=== PATIENT | male | born 1985 | race Caucasian/White ===

== ENCOUNTER 2021-10-30 05:35 | Observation (INO) | payer OTHER, SELFPAY ==
[2021-10-30 05:51] VITALS: BP 129/80; PULSE 80; RESP 18; TEMP 36.8; O2SAT 98; BMI 22.5
--- NOTE | 2021-10-30 06:14 | ECG_ITS ---
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 Measurements Intervals [place] Rate: 69 P: 75 LA: 159 QRS: 47 QRSD: 128 T: 50 QT: 402 QTc: 431 Interpretive Statements SINUS RHYTHM POSSIBLE LEFT ATRIAL ENLARGEMENT [-0.1mV P-WAVE IN V1/V2] RIGHT BUNDLE BRANCH BLOCK [120+ ms QRS DURATION, UPRIGHT V1, 40+ ms S IN I/aVL/V4/V5/V6] No previous ECG available for comparison Electronically Signed On 11-02-2021 17:33:20 [facility] [place] by Stan Dutta M.D. [id number]
--- NOTE | 2021-10-30 06:19 | ED_ITS ---
HPI - General Adult General: Chief complaint: Syncope Stated complaint: Over workout=Rhabdomylosis Time Seen by Provider: 10/30/21 06:12 History of Present Illness: HPI narrative: Patient is a 36-year-old male with no known past medical history presenting to the emergency room with abdominal wall pain and night lightheadedness. Patient tells me that 2 days ago he was working out at [employer] and strained his abdomen doing sit ups. Since then, patient has had significant pain in his abdomen. Earlier today, patient was going going up to go to the bathroom, felt lightheaded almost passed out. Patient says any that he is worried that he may have rhabdomyolysis. Patient denies any hematuria, flank pain, lightheadedness prior to today. Patient has not had any decreased p.o. intake denies any nausea vomiting, any GI symptoms including diarrhea melena or hematochezia. Patient has no urinary complaints, chest pain, shortness breath, palpitation, fever/chills. Denies any new medications. Onset:2 days ago Duration:2 days Location:home Severity:mild/moderate Review of Systems Narrative: Constitutional: No fever, no chills. HEENT: No vision changes CV: No chest pain, no palpitations PULM: no cough, no dyspnea. GI: + diffuse abdominal pain, no N/V/D. : No dysuria MSKEL: No muscle pain SKIN: No new rashes, no lesions. NEURO: No headache, no focal weakness. +light-headedness HEME: No visible bruises PSYCH: Normal mood Physical Exam Narrative: EXAM NARRATIVE: Head: Atraumatic Eyes: PERRL, conjunctiva without injection ENT: Mucous membrane moist NECK: Supple, ROM intact LUNGS: LCTAB, no crackles/rhonchi CV: RRR ABDOMEN: Soft, no focal TTP. NO guarding rebound, guarding, rigidity. No CVA tenderness to percussion. Neg Miranda/Neg McBurney's point tenderness, no suprabupic tenderness to palpation. EXTREMITY: Normal ROM SKIN: No rash or erythema NEURO: Awake and alert, no focal motor deficits PSYCH: Normal mood and affect Course Vital Signs: Vital signs: Vital Signs Temperature 98.2 F 10/30/21 05:51 Pulse Rate 71 10/30/21 06:33 Respiratory Rate 18 10/30/21 06:33 Blood Pressure 104/87 10/30/21 06:33 Pulse Oximetry 99 10/30/21 06:33 MDM - General Adult MDM Narrative: Medical decision making narrative: 36-year-old gentleman presenting to the emergency room with abdominal wall pain and lightheadedness after sustaining heavy workout 2 days ago. On exam, patient is hemodynamically stable, not appear to be dry on exam. Patient has no focal tenderness palpation of the abdomen. Patient's concern for rhabdomyolysis, will work basic blood w ork including electrolytes and CPK. Work-up, CBC, CMP, lipase, UA, EKG, athletic monitor Intervention: IVF x2 L, reassessment EKG showing regular sinus rhythm at HT of [69]. RBBB. Normal axis. No ST elevations/depressions to suggest coronary occlusion. Normal ID, QRS, QT intervals. On reassessment at 8:00am, patient appears to be symptomatically improved after 2 L of fluid and Tylenol for abdominal pain. Patient has no focal complaints at this time. CPK increased despite IVF. Cr wnl. Will admit for rehydration. Disposition: Admission Lab Data: Labs: Lab Results 10/30/21 10/30/21 10/30/21 06:20 06:20 08:29 WBC 8.6 10^3/uL 10^3/ uL (4.0-10.0) RBC 5.09 10^6/uL 10^6 /uL (4.1-5.3) Hgb 15.9 g/dL g/dL (11.7-16.6) Hct 46.9 % % (42.0-52.0) MCV 92.1 fl fl (80-94) MCH 31.2 pg pg (28.0-34.0) MCHC 33.9 g/dL g/dL (30.0-36.0) RDW 11.9 % L % (12.1-15.1) Plt Count 211 10^3/cmm 10^3 /cmm (130-400) MPV 10.7 fL H fL (7.4-10.4) Neut % (Auto) 70.5 % % Lymph % (Auto) 17.2 % % [place] % (Auto) 8.5 % % Eos % (Auto) 3.2 % % Baso % (Auto) 0.4 % % Neut # (Auto) 6.05 10^3/uL 10^3 /uL (1.8-7.7) Lymph # (Auto) 1.5 10^3/uL 10^3/ uL (0.8-4.8) [place] # (Auto) 0.7 10^3/uL 10^3/ uL (0.2-0.9) Eos # (Auto) 0.3 10^3/uL 10^3/ uL (0.0-0.8) Baso # (Auto) 0.0 10^3/uL 10^3/ uL (0.0-0.1) Nucleated RBC % (a uto) 0 % % Nucleated RBCs # 0.0 /100WBC /100W BC Sodium 138 mmol/L mmol/L (136-145) Potassium 4.2 mmol/L mmol/L (3.5-5.1) Chloride 102 mmol/L mmol/L (98-107) Carbon Dioxide 28 mmol/L mmol/L (22-29) Anion Gap 12.2 (5-19) BUN 9 mg/dL mg/dL (6-20) Creatinine 0.9 mg/dL mg/dL (0.7-1.2) GFR Calculation 95.5 mL/min mL/mi n (90-130) Glucose 121 mg/dL H mg/dL (65-115) Calculated Osmolal ity 286 mOsm/kg mOsm/ kg (285-295) Calcium 8.8 mg/dL mg/dL (8.5-10.5) Total Bilirubin 0.4 mg/dL mg/dL (0.15-1.2) AST 80 U/L H U/L (0-40) ALT 35 U/L U/L (0-41) Alkaline Phosphata se 55 IU/L IU/L (40-130) Creatine Kinase 5234 U/L H* U/L 5975 U/L H* U/L (39-308) (39-308) Total Protein 6.9 g/dL g/dL (6.6-8.7) Albumin 4.4 g/dL g/dL (3.5-5.2) Globulin 2.5 g/dL g/dL (1.3-4.6) Discharge Plan Discharge Patient Disposition: Admitted As Inpatient Clinical Impression: Abdominal wall pain, Light headedness, Elevated CPK Condition: Stable Discharge Diet: Advance as tolerated Discharge Activity: Resume usual activity 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
[2021-10-30] MEDS: sodium chloride 0.9% 1,000 ML 999 ML IV ×4 (06:26→08:00)
[2021-10-30 06:29] LABS: Basophils % 0.4 %; Eosinophils # 0.3 10^3/uL (0.0-0.8); Eosinophils % 3.2 %; Hematocrit 46.9 % (42.0-52.0); Hemoglobin 15.9 g/dL (11.7-16.6); Lymphocytes # 1.5 10^3/uL (0.8-4.8); Lymphocytes % 17.2 %; Mean Corpuscular HGB Conc 33.9 g/dL (30.0-36.0); Mean Corpuscular Hemoglobin 31.2 pg (28.0-34.0); Mean Corpuscular Volume 92.1 fl (80-94); Mean Platelet Volume 10.7 fL (7.4-10.4); Monocytes # 0.7 10^3/uL (0.2-0.9); Monocytes % 8.5 %; Neutrophils # 6.05 10^3/uL (1.8-7.7); Neutrophils % 70.5 %; Nucleated Red Blood Cells % 0 %; Platelet Count 211 10^3/cmm (130-400); Red Blood Count 5.09 10^6/uL (4.1-5.3); Red Cell Distribution Width 11.9 % (12.1-15.1); White Blood Count 8.6 10^3/uL (4.0-10.0)
[2021-10-30 06:33] VITALS: BP 104/87; PULSE 71; RESP 18; O2SAT 99
[2021-10-30 06:48] LABS: Alanine Aminotransferase 35 U/L (0-41); Albumin Level 4.4 g/dL (3.5-5.2); Alkaline Phosphatase 55 IU/L (40-130); Anion Gap 12.2 (5-19); Aspartate Amino Transferase 80 U/L (0-40); Blood Urea Nitrogen 9 mg/dL (6-20); Calcium 8.8 mg/dL (8.5-10.5); Carbon Dioxide 28 mmol/L (22-29); Chloride 102 mmol/L (98-107); Globulin 2.5 g/dL (1.3-4.6); Glomerular Filtration Rate 95.5 mL/min (90-130); Glucose 121 mg/dL (65-115); Osmolality Calculated 286 mOsm/kg (285-295); Potassium 4.2 mmol/L (3.5-5.1); Sodium 138 mmol/L (136-145); Total Bilirubin 0.4 mg/dL (0.15-1.2); Total Protein 6.9 g/dL (6.6-8.7)
[2021-10-30 07:07] LABS: Creatine Phosphokinase 5234 U/L (39-308)
[2021-10-30] MEDS: acetaminophen 500 mg Tablet PO (08:00)
[2021-10-30 09:14] LABS: Creatine Phosphokinase 5975 U/L (39-308)
--- NOTE | 2021-10-30 10:19 | P.HP_ITS ---
Providers/Chief Complaint Primary Care Provider: Nathanael Eaton Chief Complaint: Over workout=Rhabdomylosis History of Present Illness Brayan Marinelli is a 36 year old male with ocular migraines, who presents [facility] due to abdominal pain, abdominal wall pain, lightheadedness, dizziness, diaphoresis. Patient tells me that he started participating in [employer] for the last 2 months, on Tuesday he attended [employer], they did abdominal exercises, and developed abdominal pain complaints, more in the abdominal wall, muscular pain, he hydrates at least 2 L a day, on Tuesday again he did [employer], continue to have generalized musculoskeletal pain. Overnight he continued have pain, this morning he woke up, he felt lightheaded and dizzy, and at times he felt diaphoretic. No facial droop, slurring of his words, no headache, blurry vision, last bowel movement was a day ago, no bloody or black stools, no fevers, chills, no nausea, no vomiting. No chest pain, no palpitations, no shortness of breath. Review of Systems Const: Denies: fever(s), chills, fatigue or malaise Eyes: Denies: change in vision or blurry vision ENMT: Denies: nasal congestion Card: Denies: chest pain or palpitations Resp: Denies: dyspnea, productive cough, non-productive cough or wheezing GI: Reports: abdominal pain and constipation; Denies: nausea, vomiting, hematemesis, diarrhea, hematochezia or melena : Denies: flank pain, difficulty urinating, dysuria or urinary frequency Musc: Reports: muscle cramps; Denies: neck pain or back pain Skin/Breast: Denies: rash Neuro: Denies: headache(s), dizziness or vertigo Psych: Denies: anxiety or depression Endo: Denies: polyuria or polydipsia Medications/Allergies Home Medications Medication Instructions Recorded Confirmed Last Taken Type acetaminophen 500 mg PO Q6H PRN 5 Days #20 tab 10/30/21 Unknown Rx PFSH Acute PFSH: Medical History (Updated 10/30/21 @ 10:24 by Bethel Gallardo MD) Ocular migraine Surgical History (Updated 10/30/21 @ 10:23 by Bethel Gallardo MD) No pertinent past surgical history Social History (Updated 10/30/21 @ 10:23 by Bethel Gallardo MD) Smoking and tobacco status: never smoked Alcohol intake: never Substance/Drug Use: never Vitals/I&O/Wt Last Vital Signs Temp 98.2 F 10/30/21 05:51 Pulse 71 10/30/21 06:33 Resp 18 10/30/21 06:33 BP 104/87 10/30/21 06:33 Pulse Ox 99 10/30/21 06:33 10/29/21 10/30/21 10/30/21 22:59 06:59 14:59 Intake Total 1000 / 1000 Balance 1000 / 1000 Weight last 48 hrs Weight 81.647 kg Physical Exam Const: COMMON NORMALS: no acute distress and patient oriented x3 GENERAL APPEARANCE: cooperative and comfortable HENMT: COMMON NORMALS: normocephalic HEAD & SCALP: normocephalic Eye: COMMON NORMALS: Equal, round and reactive pupils present and EOMs intact bilaterally GENERAL EYE: appearance normal, both eyes and all related structures PUPIL: Yes Equal, round and reactive pupils present Neck/C-Spine: COMMON NORMALS: full ROM and no lymphadenopathy THYROID: Thyroid normal Lymph: LYMPHATIC: no lymphadenopathy noted Resp: COMMON NORMALS: normal respiratory effort, No retractions, No use of accessory muscles and clear to auscultation bilaterally AUSCULTATION: clear to auscultation bilaterally Cardio: COMMON NORMALS: regular rate, regular rhythm, S1 normal heart sound present, S2 normal heart sound present, No gallops present (Cardio), No clicks present (Cardio) and No murmurs present (Cardio) RATE: regular rate RHYTHM: regular rhythm HEART SOUNDS: S1 normal heart sound present and S2 normal heart sound present GI: INSPECTION: Yes normal to inspection AUSCULTATION: Yes normoactive bowel sounds PALPATION: Yes Soft to palpation, Yes Tenderness to palpation present (GI) (Generalized abdominal tenderness), No Guarding due to palpation present (GI) and No Rigid due to palpation Extremity: COMMON NORMALS: normal to inspection, full ROM and no pedal edema Neuro: COMMON NORMALS: patient oriented x3, CN's II-XII intact bilaterally, moves all extremities and no focal motor deficits Psych: COMMON NORMALS: mental status grossly normal, Normal thought process present and cooperative THOUGHT PROCESS: Normal thought process present Data : 10/30/21 06:20 10/30/21 06:20 A&P Assessment and plan (1) Abdominal wall pain: Status: Acute (2) Rhabdomyolysis: -Likely secondary to [employer] -Continue bedrest -IV hydration -Monitor CPK, creatinine - we will consider bicarb -We will do CT scan abdomen for abdominal wall pain, likely abdominal wall pain, will need to evaluate for gut edema Status: Acute Attestations Medical Necessity Statement*: Patient requires hospitalization, outpatient with observation, for rhabdomyolysis, abdominal wall pain, abdominal pain, dehydration, Coding Level of Care Code Acute Manager Of Marketing for [facility] Fwd Diagnoses Abdominal wall pain R10.9 Rhabdomyolysis M62.82
--- NOTE | 2021-10-30 14:32 | CTR_ITS ---
PROCEDURE INFORMATION: Exam: CT Abdomen And Pelvis Without Contrast Exam date and time: 10/30/2021 2:32 PM Age: 36 years old Clinical indication: Abdominal pain; Generalized; Patient HX: C/O abd pain w elev ck; Additional info: Abdominal pain, elevaed cp, gut edema TECHNIQUE: Imaging protocol: Computed tomography of the abdomen and pelvis without contrast. Radiation optimization: All CT scans at this facility use at least one of these dose optimization techniques: automated exposure control; mA and/or kV adjustment per patient size (includes targeted exams where dose is matched to clinical indication); or iterative reconstruction. COMPARISON: No relevant prior studies available. RADIATION DOSE METRICS: Total DLP (mGy-cm): 1369.56 FINDINGS: Liver: Normal. No mass. Gallbladder and bile ducts: Normal. No calcified stones. No ductal dilation. Pancreas: Normal. No ductal dilation. Spleen: Normal. No splenomegaly. Adrenal glands: Normal. No mass. Kidneys and ureters: Bilateral punctate nonobstructing renal calyceal stones. Stomach and bowel: Unremarkable. No obstruction. No mucosal thickening. Appendix: No evidence of appendicitis. Intraperitoneal space: Unremarkable. No free air. No significant fluid collection. Vasculature: Unremarkable. No abdominal aortic aneurysm. Lymph nodes: Unremarkable. No enlarged lymph nodes. Urinary bladder: Unremarkable as visualized. Reproductive: Unremarkable as visualized. Bones/joints: Unremarkable. No acute fracture. Soft tissues: Unremarkable. CT/CT abdomen pelvis con [id number] IMPRESSION: 1. Negative for acute inflammatory process in the abdomen or pelvis. 2. Bilateral punctate nonobstructing renal calyceal stones. Radiation Dose CTDIVOL = (mGy): DLP = 1369.56 (mGy-cm)
[2021-10-30 15:50] LABS: Thyroid Stimulating Hormone 1.94 uIU/mL (0.27-4.20)
[2021-10-30 16:00] VITALS: BP 123/76; PULSE 72; RESP 18; TEMP 36.8; O2SAT 100
[2021-10-30] MEDS: sodium chloride 0.9% 1,000 ML 100 ML IV (16:25)
[2021-10-30 16:37] VITALS: BMI 22.5
[2021-10-30 16:57] VITALS: BP 123/76; PULSE 72; RESP 18; TEMP 36.8; O2SAT 100
[2021-10-30 19:01] LABS: Creatine Phosphokinase 12676 U/L (39-308)
[2021-10-30 19:29] VITALS: BP 123/73; PULSE 74; RESP 16; TEMP 37.1; O2SAT 99
[2021-10-30 23:18] VITALS: BP 127/76; PULSE 66; RESP 16; TEMP 36.8; O2SAT 98
[2021-10-31] MEDS: sodium chloride 0.9% 1,000 ML 100 ML IV ×2 (00:23→08:25)
[2021-10-31 03:41] VITALS: BP 121/73; PULSE 63; RESP 16; TEMP 36.8; O2SAT 96
[2021-10-31 05:39] LABS: Basophils % 0.4 %; Eosinophils # 0.2 10^3/uL (0.0-0.8); Eosinophils % 2.5 %; Hematocrit 44.2 % (42.0-52.0); Hemoglobin 14.6 g/dL (11.7-16.6); Lymphocytes # 2.5 10^3/uL (0.8-4.8); Lymphocytes % 29.1 %; Mean Corpuscular Hemoglobin 30.6 pg (28.0-34.0); Mean Corpuscular Volume 92.7 fl (80-94); Mean Platelet Volume 11.7 fL (7.4-10.4); Monocytes # 0.9 10^3/uL (0.2-0.9); Neutrophils # 4.92 10^3/uL (1.8-7.7); Neutrophils % 57.8 %; Nucleated Red Blood Cells % 0 %; Platelet Count 197 10^3/cmm (130-400); Red Blood Count 4.77 10^6/uL (4.1-5.3); Red Cell Distribution Width 11.9 % (12.1-15.1); White Blood Count 8.5 10^3/uL (4.0-10.0)
[2021-10-31 06:20] LABS: Alanine Aminotransferase 51 U/L (0-41); Albumin Level 3.8 g/dL (3.5-5.2); Alkaline Phosphatase 48 IU/L (40-130); Anion Gap 13.8 (5-19); Aspartate Amino Transferase 161 U/L (0-40); Blood Urea Nitrogen 6 mg/dL (6-20); Calcium 8.2 mg/dL (8.5-10.5); Carbon Dioxide 25 mmol/L (22-29); Chloride 105 mmol/L (98-107); Creatinine Clr Calc Pharmacy 150.5089; Globulin 2.1 g/dL (1.3-4.6); Glomerular Filtration Rate 109.4 mL/min (90-130); Glucose 85 mg/dL (65-115); Magnesium 1.9 mg/dL (1.7-2.3); Osmolality Calculated 287 mOsm/kg (285-295); Phosphorus 3.1 mg/dL (2.5-4.5); Potassium 3.8 mmol/L (3.5-5.1); Sodium 140 mmol/L (136-145); Total Bilirubin 0.8 mg/dL (0.15-1.2); Total Protein 5.9 g/dL (6.6-8.7)
[2021-10-31 07:35] VITALS: BP 116/71; PULSE 69; RESP 18; TEMP 36.8; O2SAT 97
[2021-10-31 07:45] LABS: Creatine Phosphokinase 10825 U/L (39-308)
[2021-10-31] MEDS: sodium bicarbonate 650 mg Tablet PO (11:11)
[2021-10-31 11:31] VITALS: BP 114/65; PULSE 66; RESP 17; TEMP 36.7; O2SAT 98
--- NOTE | 2021-10-31 12:45 | PC.NURSE ---
Patient requested to sign AMA papers at this time because he is not interested in staying another night in the hospital .Dr. Gallardo notified at this time. Patient educated on drinking 3-4L of Gatorade or water a day, bedrest for the next 48 hours, and following up with his primary provider to recheck labs. Patient voiced understanding and thankful for care provided while here.
--- NOTE | 2021-10-31 14:19 | P.DS_ITS ---
Discharge Providers Date of Admission: 10/30/21 09:19 Date of Discharge: October 31, 2021 Attending Provider at Admission: Bethel Gallardo MD Attending Provider at Discharge: Bethel Gallardo MD Primary Care Provider: Nathanael Eaton Diagnoses at Discharge Discharge Diagnosis (1) Abdominal wall pain: Status: Acute (2) Rhabdomyolysis: Status: Acute Reason for Visit Reason for Visit: Over workout=Rhabdomylosis Hospital Course Hospital Course This is a 36-year-old male with a past medical history of ocular migraines, who presents [facility] due to lightheadedness, patient was admitted to [facility] for rhabdomyolysis, and [place], [place] [address], downward trending, receiving IV hydration, sodium bicarb, bedrest. No significant creatinine elevation. Patient is CPK remains elevated, I strongly advised for hospitalization, however patient left AGAINST MEDICAL ADVICE. Patient was advised of his risk of significant morbidity mortality associated with rhabdomyolysis, dehydration, acute renal failure, including but not limited to dialysis, adverse cardiovascular event, sudden cardiac . He voiced understanding, all questions answered, left AGAINST MEDICAL ADVICE. Patient was discharged home on instructions to drink plenty of electrolyte balance fluids, sodium bicarb, follow-up with primary care provider we will recheck blood work in 1 week. Patient was advised on bedrest for the next few days Discharge Data Data Completed and Pending: Completed Studies During Hospitalization Category Date Time Status CT abdomen pelvis wo con [id number] Urge nt Cat Scan 10/30/21 14:32 Completed Labs from last 24 hours 10/31/21 10/31/21 10/31/21 02:57 02:57 02:57 WBC 8.5 RBC 4.77 Hgb 14.6 Hct 44.2 MCV 92.7 MCH 30.6 MCHC 33.0 RDW 11.9 L Plt Count 197 MPV 11.7 H Neut % (Auto) 57.8 Lymph % (Auto) 29.1 [place] % (Auto) 10.0 Eos % (Auto) 2.5 Baso % (Auto) 0.4 Neut # (Auto) 4.92 Lymph # (Auto) 2.5 [place] # (Auto) 0.9 Eos # (Auto) 0.2 Baso # (Auto) 0.0 Nucleated RBC % (a uto) 0 Nucleated RBCs # 0.0 Sodium 140 Potassium 3.8 Chloride 105 Carbon Dioxide 25 Anion Gap 13.8 BUN 6 Creatinine 0.8 GFR Calculation 109.4 Glucose 85 Calculated Osmolal ity 287 Calcium 8.2 L Phosphorus 3.1 Magnesium 1.9 Total Bilirubin 0.8 AST 161 H ALT 51 H Alkaline Phosphata se 48 Creatine Kinase Cancelled 22445 H* Total Protein 5.9 L Albumin 3.8 Globulin 2.1 TSH 10/30/21 10/30/21 18:19 06:20 WBC RBC Hgb Hct MCV MCH MCHC RDW Plt Count MPV Neut % (Auto) Lymph % (Auto) [place] % (Auto) Eos % (Auto) Baso % (Auto) Neut # (Auto) Lymph # (Auto) [place] # (Auto) Eos # (Auto) Baso # (Auto) Nucleated RBC % (a uto) Nucleated RBCs # Sodium Potassium Chloride Carbon Dioxide Anion Gap BUN Creatinine GFR Calculation Glucose Calculated Osmolal ity Calcium Phosphorus Magnesium Total Bilirubin AST ALT Alkaline Phosphata se Creatine Kinase 82203 H* D Total Protein Albumin Globulin TSH 1.94 Vitals: Last Vital Signs Temp 98.1 F 10/31/21 11:31 Pulse 66 10/31/21 11:31 Resp 17 10/31/21 11:31 BP 114/65 10/31/21 11:31 Pulse Ox 98 10/31/21 11:31 Discharge Plan Discharge Patient Disposition: Left Against Medical Advice Condition: Stable Prescriptions: New sodium bicarbonate 325 mg tablet 325 mg PO BID 5 Days Qty: 10 RF: 0 No Action No Known Home Medications RF: 0 Discharge Orders: Discharge Order (Routine); Ordered 10/31/21 Ordered By: Bethel Gallardo Referrals: Nathanael Eaton [Primary Care Provider] - Discharge Diet: Advance as tolerated Discharge Activity: Resume usual activity Patient Instructions: Abdominal Pain (ED) Activity Restrictions/Additional Instructions: Come back to the emergency room if your abdominal pain worsens, have any fever or chills, worsening shortness of breath, worsening exertional lightheadedness, or any new or concerning complaints. -Please drink plenty of electrolyte balance fluids such as Gatorade or Powerade, at least 2 L a day -Follow-up with primary care provider about recheck CPK, and kidney function within at least a week -If any worsening lightheadedness, dizziness, flank pain go to the emergency room Discharge Attestations Time Spent in Discharge Care*: less than 30 min Quality Metrics Clinical Quality Measures During this hospital stay, did patient experience: None Coding Level of Care Code Acute Chg FW DC note Diagnoses Abdominal wall pain R10.9 Rhabdomyolysis M62.82
== END 2021-10-31 12:56 | disposition left against medical advice (07) ==
LOC: ER 09:18 → MEDSURG 15:03
PROVIDERS: Emergency Medicine; Admitting Provider Family Medicine; Emergency Provider Emergency Medicine; PCP Internal Medicine; Visit Provider Family Medicine
DX: M62.82 Rhabdomyolysis (principal); R10.9 Unspecified abdominal pain; E86.0 Dehydration; G43.809 Other migraine, not intractable, without status migrainosus; Z53.29 Procedure and treatment not carried out because of patient's decision for other reasons
CPT/HCPCS: 36415; 74176; 80053; 82550; 83735; 84100; 84443; 85025; 93005; 96360; 96361; 99285; G0378; J7030

== ENCOUNTER 2022-04-13 12:52 | Emergency (ER) | payer OTHER, SELFPAY ==
[2022-04-13 12:56] VITALS: BP 137/82; PULSE 79; RESP 18; TEMP 36.7; O2SAT 100; BMI 22.5
--- NOTE | 2022-04-13 13:09 | XRR_ITS ---
PROCEDURE INFORMATION: Exam: XR Chest Exam date and time: 04/13/2022 1:16 PM Age: 36 years old Clinical indication: Cough and dyspnea; Additional info: Dyspnea/cough TECHNIQUE: Imaging protocol: XR of the chest. Views: 1 view. COMPARISON: CT abdomen pelvis con [id number] 10/30/2021 2:45 PM FINDINGS: Lungs: Unremarkable. No consolidation. Pleural spaces: Unremarkable. No pleural effusion. No pneumothorax. Heart/Mediastinum: Unremarkable. No cardiomegaly. Bones/joints: Unremarkable. XR/XR chest 1V portable [id number] IMPRESSION: No acute findings.
--- NOTE | 2022-04-13 13:09 | ECG_ITS ---
[facility] Test Date: 2022-04-13 Pat Name: Brayan Marinelli Department: Room: Gender: Male Sample Ste[employer]: : 1985 Requested By: Romeo Borjas Order Number: [id number] Renée MD: Stan Dutta M.D. Measurements Intervals [place] Rate: 78 P: 80 TN: 149 QRS: 38 QRSD: 121 T: 53 QT: 372 QTc: 424 Interpretive Statements SINUS RHYTHM WITH SINUS ARRHYTHMIA LEFT ATRIAL ENLARGEMENT [-0.15mV P-WAVE IN V1/V2] RIGHT BUNDLE BRANCH BLOCK [120+ ms QRS DURATION, UPRIGHT V1, 40+ ms S IN I/aVL/V4/V5/V6] Compared to ECG 10/30/2021 07:02:03 No significant changes Electronically Signed On 04-13-2022 17:09:44 CDT by Stan Dutta M.D. [id number]
--- NOTE | 2022-04-13 13:11 | W.ED.ARRPALP ---
HPI - Arrhythmia/Palpitations General: Chief Complaint: Arrhythmia/Palpitations Stated Complaint: NEW ONSET A-FIB Time Seen by Provider: 04/13/22 12:54 Source: patient Mode of arrival: ambulatory Limitations: no limitations History of Present Illness: 36-year-old male presents emergency room with complaint of irregular heartbeat. Brought in by EMS from local [facility]. Not been feeling well he was lightheaded had a sensation of palpitations and irregular heartbeat went to [place] [facility] he was noted to be in atrial fibrillation with rapid ventricular response. By the time he arrived here he is back in normal sinus rhythm with normal vital signs. He denies use of any energy drinks or excessive caffeine intake no recent medication changes. He has not previously had any arrhythmias. MD complaint: rapid heart beat, palpitations and irregular heart beat Onset (ago): hour(s) Duration: intermittent Severity: moderate Context: occurred during rest Associated symptoms: Deny anxiety, cough, diaphoresis, muscle cramps, nausea, paresthesias, pre-syncope, sense of impending doom, short of breath, syncope or vomiting Review of Systems Const: Denies: fever(s), chills or diaphoresis ENMT: Denies: throat pain, ear or mastoid pain, nasal discharge or nasal congestion Card: Reports: irregular heart rhythm; Denies: chest pain, palpitations, edema, swelling of feet/ankles, syncope or pre-syncope Resp: Denies: dyspnea, productive cough or non-productive cough GI: Denies: abdominal pain, nausea or vomiting : Denies: flank pain, difficulty urinating, dysuria, urinary frequency or urinary urgency Musc: Denies: muscle cramps Skin/Breast: Denies: rash or pruritus Psych: Denies: anxiety PFSH ED PFSH: Medical History Ocular migraine Surgical History No pertinent past surgical history Social History Smoking and tobacco status: never smoked Alcohol intake: never Physical Exam Const: COMMON NORMALS: no acute distress GENERAL APPEARANCE: cooperative and comfortable ORIENTATION/CONSCIOUSNESS: Yes awake, Yes oriented to person, Yes oriented to place and Yes oriented to time HENMT: COMMON NORMALS: normocephalic, atraumatic and hearing grossly normal bilaterally HEAD & SCALP: normocephalic and atraumatic Neck/C-Spine: COMMON NORMALS: no JVD Resp: COMMON NORMALS: normal respiratory effort, No retractions, No use of accessory muscles and clear to auscultation bilaterally AUSCULTATION: clear to auscultation bilaterally Cardio: COMMON NORMALS: no JVD and No murmurs present (Cardio) RATE: tachycardic RHYTHM: abnormal rhythm irregularly irregular GI: COMMON NORMALS: Soft to palpation and No hepatosplenomegaly present AUSCULTATION: Yes normoactive bowel sounds PALPATION: Yes Soft to palpation, No Tenderness to palpation present (GI), No Guarding due to palpation present (GI) and Yes No hepatosplenomegaly present Extremity: COMMON NORMALS: normal to inspection, capillary refill normal, no clubbing, cyanosis or edema, no calf tenderness and no pedal edema Neuro: SENSORIUM/ORIENTATION: Yes oriented to person, Yes oriented to place and Yes oriented to time Skin: COMMON NORMALS: no rashes or lesions noted GENERAL SKIN EXAM: no rashes or lesions noted Course Vital Signs: Vital signs: Vital Signs Temperature 98.0 F 04/13/22 12:56 Pulse Rate 83 04/13/22 16:30 Respiratory Rate 17 04/13/22 16:30 Blood Pressure 118/78 04/13/22 16:30 Pulse Oximetry 98 04/13/22 16:30 MDM - Arrhythmia/Palpitations Medical Decision Making Intermittent atrial fibrillation has remained in normal sinus rhythm. Will discharge patient home he does not have adequate blood pressure to allow for starting a beta-yefri. We will set him up for an echo and an outpatient 48-hour Holter follow-up with cardiology. Medical Records I reviewed the patient's medical records. Lab Data I reviewed the patient's lab results. : 04/13/22 13:05 04/13/22 13:05 Radiology Impressions Chest X-Ray 04/13/22 13:09 IMPRESSION: No acute findings. Laboratory Results WBC 6.7 10^3/uL (4.0-10.0) 04/13/22 13:05 RBC 5.80 10^6/uL (4.1-5.3) H 04/13/22 13:05 Hgb 17.8 g/dL (11.7-16.6) H 04/13/22 13:05 Hct 52.0 % (42.0-52.0) 04/13/22 13:05 MCV 89.7 fl (80-94) 04/13/22 13:05 MCH 30.7 pg (28.0-34.0) 04/13/22 13:05 MCHC 34.2 g/dL (30.0-36.0) 04/13/22 13:05 RDW 12.0 % (12.1-15.1) L 04/13/22 13:05 Plt Count 231 10^3/cmm (130-400) 04/13/22 13:05 MPV 11.0 fL (7.4-10.4) H 04/13/22 13:05 Neut % (Auto) 48.7 % 04/13/22 13:05 Lymph % (Auto) 33.7 % 04/13/22 13:05 Weld % (Auto) 10.8 % 04/13/22 13:05 Eos % (Auto) 6.1 % 04/13/22 13:05 Baso % (Auto) 0.6 % 04/13/22 13:05 Neut # (Auto) 3.27 10^3/uL (1.8-7.7) 04/13/22 13:05 Lymph # (Auto) 2.3 10^3/uL (0.8-4.8) 04/13/22 13:05 Weld # (Auto) 0.7 10^3/uL (0.2-0.9) 04/13/22 13:05 Eos # (Auto) 0.4 10^3/uL (0.0-0.8) 04/13/22 13:05 Baso # (Auto) 0.0 10^3/uL (0.0-0.1) 04/13/22 13:05 Nucleated RBC % (auto) 0 % 04/13/22 13:05 Nucleated RBCs # 0.0 /100WBC 04/13/22 13:05 Sodium 138 mmol/L (136-145) 04/13/22 13:05 Potassium 3.8 mmol/L (3.5-5.1) 04/13/22 13:05 Chloride 99 mmol/L (98-107) 04/13/22 13:05 Carbon Dioxide 27 mmol/L (22-29) 04/13/22 13:05 Anion Gap 15.8 (5-19) 04/13/22 13:05 BUN 12 mg/dL (6-20) 04/13/22 13:05 Creatinine 0.9 mg/dL (0.7-1.2) 04/13/22 13:05 GFR Calculation 95.5 mL/min (90-130) 04/13/22 13:05 Glucose 103 mg/dL (65-115) 04/13/22 13:05 Calculated Osmolality 286 mOsm/kg (285-295) 04/13/22 13:05 Calcium 10.0 mg/dL (8.5-10.5) 04/13/22 13:05 Total Bilirubin 0.9 mg/dL (0.15-1.2) 04/13/22 13:05 AST 20 U/L (0-40) 04/13/22 13:05 ALT 17 U/L (0-41) 04/13/22 13:05 Alkaline Phosphatase 54 IU/L (40-130) 04/13/22 13:05 Creatine Kinase 104 U/L (39-308) 04/13/22 13:05 Troponin T Baseline 6 ng/L (0-15) 04/13/22 13:05 Troponin T 120 Minute 7.54 ng/L (0-15) 04/13/22 15:10 Total Protein 8.0 g/dL (6.6-8.7) 04/13/22 13:05 Albumin 5.1 g/dL (3.5-5.2) 04/13/22 13:05 Globulin 2.9 g/dL (1.3-4.6) 04/13/22 13:05 TSH 1.93 uIU/mL (0.27-4.20) 04/13/22 13:05 Urine Opiates Screen Negative ng/mL (Negative) 04/13/22 14:23 Ur Barbiturates Screen Negative ng/mL (Negative) 04/13/22 14:23 Ur Phencyclidine Scrn Negative ng/mL (Negative) 04/13/22 14:23 Ur Amphetamines Screen Negative ng/mL (Negative) 04/13/22 14:23 U Benzodiazepines Scrn Negative ng/mL (Negative) 04/13/22 14:23 Urine Cocaine Screen Negative ng/mL (Negative) 04/13/22 14:23 U Marijuana (THC) Screen Negative ng/mL (Negative) 04/13/22 14:23 Discharge Plan Discharge Patient Disposition: Home Clinical Impression: Intermittent atrial fibrillation Condition: Stable Prescriptions: No Action No Known Home Medications 0RF Discharge Orders: Discharge ED (Routine); Ordered 04/13/22 Ordered By: Romeo Gautam Referrals: Nathanael Eaton [Referring] - Discharge Diet: Usual diet Patient Instructions: Opioid Safety Activity Restrictions/Additional Instructions: campaign management senior manager will make arrangements for you to have an echocardiogram and follow-up with cardiology. Coding Level of Care Code ED Glove Turner And Former Automatic for Nick Fwd Exam Comprehensive
[2022-04-13 13:21] LABS: Basophils % 0.6 %; Eosinophils # 0.4 10^3/uL (0.0-0.8); Eosinophils % 6.1 %; Hemoglobin 17.8 g/dL (11.7-16.6); Lymphocytes # 2.3 10^3/uL (0.8-4.8); Lymphocytes % 33.7 %; Mean Corpuscular HGB Conc 34.2 g/dL (30.0-36.0); Mean Corpuscular Hemoglobin 30.7 pg (28.0-34.0); Mean Corpuscular Volume 89.7 fl (80-94); Monocytes # 0.7 10^3/uL (0.2-0.9); Monocytes % 10.8 %; Neutrophils # 3.27 10^3/uL (1.8-7.7); Neutrophils % 48.7 %; Nucleated Red Blood Cells % 0 %; Platelet Count 231 10^3/cmm (130-400); White Blood Count 6.7 10^3/uL (4.0-10.0)
[2022-04-13 13:45] LABS: Troponin(5th) Baseline 6 ng/L (0-15)
[2022-04-13 13:52] LABS: Alanine Aminotransferase 17 U/L (0-41); Albumin Level 5.1 g/dL (3.5-5.2); Alkaline Phosphatase 54 IU/L (40-130); Anion Gap 15.8 (5-19); Aspartate Amino Transferase 20 U/L (0-40); Blood Urea Nitrogen 12 mg/dL (6-20); Carbon Dioxide 27 mmol/L (22-29); Chloride 99 mmol/L (98-107); Creatine Phosphokinase 104 U/L (39-308); Globulin 2.9 g/dL (1.3-4.6); Glomerular Filtration Rate 95.5 mL/min (90-130); Glucose 103 mg/dL (65-115); Osmolality Calculated 286 mOsm/kg (285-295); Potassium 3.8 mmol/L (3.5-5.1); Sodium 138 mmol/L (136-145); Thyroid Stimulating Hormone 1.93 uIU/mL (0.27-4.20); Total Bilirubin 0.9 mg/dL (0.15-1.2)
[2022-04-13 14:03] VITALS: BP 131/89; PULSE 82; RESP 17; O2SAT 98
[2022-04-13 14:39] VITALS: BP 130/94; PULSE 71; RESP 15; O2SAT 99
--- NOTE | 2022-04-13 15:09 | ECG_ITS ---
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 Measurements Intervals [place] Rate: 72 P: 80 DE: 148 QRS: 40 QRSD: 124 T: 43 QT: 381 QTc: 419 Interpretive Statements SINUS RHYTHM POSSIBLE LEFT ATRIAL ENLARGEMENT [-0.1mV P-WAVE IN V1/V2] RIGHT BUNDLE BRANCH BLOCK [120+ ms QRS DURATION, UPRIGHT V1, 40+ ms S IN I/aVL/V4/V5/V6] Compared to ECG 04/13/2022 13:14:36 Sinus arrhythmia no longer present Electronically Signed On 04-13-2022 17:15:19 CDT by Stan Dutta M.D. [id number]
[2022-04-13 15:11] LABS: Amphetamines Screen Urine Negative (Negative); Barbiturates Screen Urine Negative (Negative); Benzodiazepines Screen Urine Negative (Negative); Cocaine Screen Urine Negative (Negative); Opiate Screen Urine Negative (Negative); PCP Screen Urine Negative (Negative); THC Screen Urine Negative (Negative)
[2022-04-13 15:28] VITALS: BP 131/84; PULSE 70; RESP 30
[2022-04-13 16:06] LABS: Troponin 5 2HR 7.54 ng/L (0-15)
[2022-04-13 16:30] VITALS: BP 118/78; PULSE 83; RESP 17; O2SAT 98
[2022-04-13 17:05] LABS: Troponin 5 2HR Delta 1.54 ABS# (0-10)
--- NOTE | 2022-04-14 13:03 | DCPLANNER ---
Addendum entered by Tena Marinelli 04/24/22 08:20: Patient had a follow up appointment scheduled for 04.20.22 with [facility] - patient did attend appointment. Addendum entered by Tena Marinelli 04/20/22 07:03: The ER physician wanted some outpatient tests ordered for patient. Patient has [facility] insurance, the outpatient test can not be ordered from the ER. senior international tax manager sent patients information to Martha with [facility] for the authorization process to be started. Original Note: senior international tax manager had message to schedule a follow up appointment for patient with [facility]. senior international tax manager sent patients information to the front office staff at [facility]. Patients information will be printed and reviewed. Clinic will call patient with appointment information.
== END 2022-04-13 17:03 | disposition home or self-care (01) ==
PROVIDERS: Emergency Provider Family Medicine
DX: I48.91 Unspecified atrial fibrillation (principal)
CPT/HCPCS: 71045; 80053; 80306; 82550; 84443; 84484; 85025; 93005; 99284

== ENCOUNTER 2022-04-14 17:36 | Emergency (ER) | payer OTHER, SELFPAY ==
[2022-04-14 17:45] VITALS: BP 128/77; PULSE 86; RESP 18; TEMP 36.6; O2SAT 99; BMI 22.5
[2022-04-14] MEDS: sodium chloride 0.9% 1,000 ML 999 ML IV (18:02)
[2022-04-14 18:18] VITALS: BP 123/85; PULSE 76; RESP 17; O2SAT 97
--- NOTE | 2022-04-14 18:25 | W.ED.SOB ---
HPI - SOB/Dyspnea General: Chief Complaint: Shortness of Breath/Dyspnea Stated Complaint: SOB/exhausted feelin/here yesterday due heart prob Time Seen by Provider: 04/14/22 18:21 History of Present Illness: HPI Narrative: Mr. Marinelli is a 36-year-old gentleman with recent diagnosis of intermittent atrial fibrillation presents to the emergency department due to generalized symptoms. He reports presented yesterday primarily with abnormal fluttering sensation in his chest associated with generalized malaise and lightheadedness. He spontaneously converted while being seen in the emergency department yesterday and did not have recurrence. He was initiated on beta-blockade at discharge. Today he reports continued symptoms after feeling somewhat improved last night. He has generalized weakness and unwell feeling. He notes nausea but no vomiting, no abdominal pain. Symptoms been intermittent and he feels like correlate after eating. He does have mildly similar symptoms compared to yesterday however has not had fluttering sensation in his chest. Intensity symptoms moderate to severe when present. No other specific changes in health, exacerbating, or alleviating factors identified. Onset (ago): hour(s) Timing: intermittent Severity: moderate Exacerbating factors: other Review of Systems General: Reports: 10 or more systems reviewed and unremarkable except in HPI and below PFSH ED PFSH: Medical History Ocular migraine Surgical History No pertinent past surgical history Social History Smoking and tobacco status: never smoked Alcohol intake: never Physical Exam Const: COMMON NORMALS: alert GENERAL APPEARANCE: cooperative and well developed HENMT: COMMON NORMALS: normocephalic and atraumatic HEAD & SCALP: normocephalic and atraumatic Eye: COMMON NORMALS: conjunctivae normal CONJUNCTIVA: Yes conjunctivae normal SCLERA: sclerae normal Neck/C-Spine: COMMON NORMALS: supple GENERAL: Yes trachea midline Resp: COMMON NORMALS: clear to auscultation bilaterally EFFORT & INSPECTION: Yes able to speak in complete sentences AUSCULTATION: clear to auscultation bilaterally Cardio: COMMON NORMALS: regular rate and regular rhythm RATE: regular rate RHYTHM: regular rhythm GI: COMMON NORMALS: Soft to palpation PALPATION: Yes Soft to palpation and No Tenderness to palpation present (GI) PERCUSSION: normal to percussion Extremity: GENERAL: Yes normal exam except as noted and No edema Neuro: COMMON NORMALS: moves all extremities SENSORIUM/ORIENTATION: Yes alert and No Orientation impaired Psych: COMMON NORMALS: mental status grossly normal and Normal thought process present THOUGHT PROCESS: Normal thought process present Course ED course: - Patient was seen and evaluated by me at bedside - Patient placed on cardiac monitors, IV access obtained - Initial evaluation notable for exam as above. - Labs and xrays personally interpreted by me. EKG notable for sinus rhythm with sinus arrhythmia, no STEMI -Fluid bolus given - Labs notable for no significant hematologic or metabolic abnormality to explain symptoms. No significant electrolyte derangement. Viral studies negative. -No lobar consolidation or pneumothorax on chest x-ray - Upon serial reexamination after treatment the patient was mildly improved. He tolerated p.o. intake without recurrence of symptoms - Based on patient history, evaluation, and testing as interpreted the most likely cause of the patient's condition is uncertain generalized symptoms. - The results of ED evaluation were discussed with the patient including prescriptions and/or symptomatic cares (if applicable) including appropriate and responsible use, followup plan, and return precautions. The patient verbalized understanding and felt safe for discharge. - Patient discharged in satisfactory condition. Note: Click bubbles or prepopulated bailon in note writing are used for assistance with data collection and billing and are inherently more limited than narrative and other text portions of this note. Please use narrative for additional clinical history and defer to narrative/free test for any case of contradictory information. If information appears in only free text or click bubble it should be considered present or absent as reported. Please contact note greeting card writer for clarifications of clinical information or contradictory information. MDM is a brief summary, contradictory or erroneous seeming information should be clarified and full note should be reviewed. Vital Signs: Vital signs: Vital Signs Temperature 97.9 F 04/14/22 17:45 Pulse Rate 83 04/14/22 19:57 Respiratory Rate 17 04/14/22 19:57 Blood Pressure 143/85 04/14/22 19:57 Pulse Oximetry 97 04/14/22 19:57 MDM - SOB/Dyspnea Medical Decision Making 36-year-old male with recent diagnosis of intermittent atrial fibrillation presenting with generalized malaise and concern over eating. No acute abnormality identified on ED evaluation. Satisfactory for continued outpatient follow-up. Medical Records I reviewed the patient's medical records. Lab Data I reviewed the patient's lab results. : 04/14/22 18:09 04/14/22 18:09 Labs/Radiology: Radiology Impressions Chest X-Ray 04/14/22 19:28 IMPRESSION: No acute findings. Laboratory Results WBC 8.0 10^3/uL (4.0-10.0) 04/14/22 18:09 RBC 5.36 10^6/uL (4.1-5.3) H 04/14/22 18:09 Hgb 16.6 g/dL (11.7-16.6) 04/14/22 18:09 Hct 47.1 % (42.0-52.0) 04/14/22 18:09 MCV 87.9 fl (80-94) 04/14/22 18:09 MCH 31.0 pg (28.0-34.0) 04/14/22 18: MCHC 35.2 g/dL (30.0-36.0) 04/14/22 18:09 RDW 11.9 % (12.1-15.1) L 04/14/22 18:09 Plt Count 225 10^3/cmm (130-400) 04/14/22 18:09 MPV 11.1 fL (7.4-10.4) H 04/14/22 18:09 Neut % (Auto) 78.7 % 04/14/22 18:09 Lymph % (Auto) 13.9 % 04/14/22 18:09 Stewart % (Auto) 6.4 % 04/14/22 18:09 Eos % (Auto) 0.4 % 04/14/22 18:09 Baso % (Auto) 0.3 % 04/14/22 18:09 Neut # (Auto) 6.28 10^3/uL (1.8-7.7) 04/14/22 18:09 Lymph # (Auto) 1.1 10^3/uL (0.8-4.8) 04/14/22 18:09 Stewart # (Auto) 0.5 10^3/uL (0.2-0.9) 04/14/22 18:09 Eos # (Auto) 0.0 10^3/uL (0.0-0.8) 04/14/22 18:09 Baso # (Auto) 0.0 10^3/uL (0.0-0.1) 04/14/22 18:09 Nucleated RBC % (auto) 0 % 04/14/22 18:09 Nucleated RBCs # 0.0 /100WBC 04/14/22 18:09 Sodium 138 mmol/L (136-145) 04/14/22 18:09 Potassium 4.9 mmol/L (3.5-5.1) 04/14/22 18:09 Chloride 102 mmol/L (98-107) 04/14/22 18:09 Carbon Dioxide 26 mmol/L (22-29) 04/14/22 18:09 Anion Gap 14.9 (5-19) 04/14/22 18:09 BUN 9 mg/dL (6-20) 04/14/22 18:09 Creatinine 0.8 mg/dL (0.7-1.2) 04/14/22 18:09 GFR Calculation 109.4 mL/min (90-130) 04/14/22 18:09 Glucose 93 mg/dL (65-115) 04/14/22 18:09 POC Glucose 137 mg/dL (70-110) H 04/14/22 21:33 Calculated Osmolality 284 mOsm/kg (285-295) L 04/14/22 18:09 Calcium 9.5 mg/dL (8.5-10.5) 04/14/22 18:09 Magnesium 2.4 mg/dL (1.7-2.3) H 04/14/22 18:09 Total Bilirubin 0.6 mg/dL (0.15-1.2) 04/14/22 18:09 AST 25 U/L (0-40) 04/14/22 18:09 ALT 18 U/L (0-41) 04/14/22 18:09 Alkaline Phosphatase 47 IU/L (40-130) 04/14/22 18:09 Total Protein 7.9 g/dL (6.6-8.7) 04/14/22 18:09 Albumin 5.0 g/dL (3.5-5.2) 04/14/22 18:09 Globulin 2.9 g/dL (1.3-4.6) 04/14/22 18:09 Influenza Type A Ag Negative (Negative) 04/14/22 19:35 Influenza Type B Ag Negative (Negative) 04/14/22 19:35 SARS-CoV-2 Ag (Rapid) Negative (Negative) 04/14/22 19:35 Discharge Plan Discharge Patient Disposition: Home Clinical Impression: Malaise and fatigue, Shortness of breath Condition: Stable Prescriptions: New ondansetron 4 mg tablet,disintegrating 4 mg PO Q8H PRN (Reason: nausea and vomiting) Qty: 15 0RF No Action Vistaril 50 mg capsule 50 mg PO TID PRN (Reason: anxiety) Qty: 30 0RF Discharge Orders: Discharge ED (Routine); Ordered 04/14/22 Ordered By: Ger Han Discharge Diet: Usual diet Discharge Activity: Increase activity as tolerated Patient Instructions: Fatigue (ED), Shortness of Breath (ED) Activity Restrictions/Additional Instructions: Thank you for visiting the emergency department. You were seen and evaluated for generalized malaise, shortness of breath, and weakness. The exact cause of your symptoms is unclear. Please follow-up with your primary care provider. Please follow-up with cardiology. Return to the emergency department for worsening symptoms or anything else that you are concerned about and feel needs emergency department evaluation. Coding Level of Care Code ED Chalk Molding Machine Operator for Nick Fwkeith Exam Comprehensive
[2022-04-14 18:51] LABS: Basophils % 0.3 %; Eosinophils % 0.4 %; Hematocrit 47.1 % (42.0-52.0); Hemoglobin 16.6 g/dL (11.7-16.6); Lymphocytes # 1.1 10^3/uL (0.8-4.8); Lymphocytes % 13.9 %; Mean Corpuscular HGB Conc 35.2 g/dL (30.0-36.0); Mean Corpuscular Volume 87.9 fl (80-94); Mean Platelet Volume 11.1 fL (7.4-10.4); Monocytes # 0.5 10^3/uL (0.2-0.9); Monocytes % 6.4 %; Neutrophils # 6.28 10^3/uL (1.8-7.7); Neutrophils % 78.7 %; Nucleated Red Blood Cells % 0 %; Platelet Count 225 10^3/cmm (130-400); Red Blood Count 5.36 10^6/uL (4.1-5.3); Red Cell Distribution Width 11.9 % (12.1-15.1)
[2022-04-14 19:10] LABS: Alkaline Phosphatase 47 IU/L (40-130); Blood Urea Nitrogen 9 mg/dL (6-20); Calcium 9.5 mg/dL (8.5-10.5); Carbon Dioxide 26 mmol/L (22-29); Chloride 102 mmol/L (98-107); Creatinine Clr Calc Pharmacy 150.5089; Globulin 2.9 g/dL (1.3-4.6); Glomerular Filtration Rate 109.4 mL/min (90-130); Glucose 93 mg/dL (65-115); Magnesium 2.4 mg/dL (1.7-2.3); Osmolality Calculated 284 mOsm/kg (285-295); Sodium 138 mmol/L (136-145); Total Bilirubin 0.6 mg/dL (0.15-1.2); Total Protein 7.9 g/dL (6.6-8.7)
[2022-04-14 19:13] LABS: Alanine Aminotransferase 18 U/L (0-41); Anion Gap 14.9 (5-19); Aspartate Amino Transferase 25 U/L (0-40); Potassium 4.9 mmol/L (3.5-5.1)
--- NOTE | 2022-04-14 19:28 | XRR_ITS ---
PROCEDURE INFORMATION: Exam: XR Chest Exam date and time: 04/14/2022 7:41 PM Age: 36 years old Clinical indication: Shortness of breath; Additional info: Shortness of breath, weakness TECHNIQUE: Imaging protocol: XR of the chest. Views: 1 view. COMPARISON: CR XR chest 1V portable [id number] 04/13/2022 1:16 PM FINDINGS: Lungs: Unremarkable. No consolidation. Pleural spaces: Unremarkable. No pleural effusion. No pneumothorax. Heart/Mediastinum: Unremarkable. No cardiomegaly. Bones/joints: Unremarkable. XR/XR chest 1V portable [id number] IMPRESSION: No acute findings.
[2022-04-14 19:57] VITALS: BP 143/85; PULSE 83; RESP 17; O2SAT 97
[2022-04-14 20:10] LABS: Influenza A by IFA Negative (Negative); Influenza B by IFA Negative (Negative)
[2022-04-14 20:22] LABS: SARS Covid-2 Antigen Negative (Negative)
[2022-04-14 21:36] LABS: Glucose Point of Care 137 mg/dL (70-110)
== END 2022-04-14 21:40 | disposition home or self-care (01) ==
PROVIDERS: Emergency Provider Emergency Medicine
DX: R06.02 Shortness of breath (principal); R53.81 Other malaise
CPT/HCPCS: 36415; 36416; 71045; 80053; 82962; 83735; 85025; 87426; 87804; 96360; 99283; J7030

== ENCOUNTER 2022-04-17 10:16 | Emergency (ER) | payer OTHER, SELFPAY ==
[2022-04-17 10:43] VITALS: BP 161/82; PULSE 86; RESP 16; TEMP 36.5; O2SAT 98; BMI 22.5
[2022-04-17 10:49] VITALS: O2SAT 98
--- NOTE | 2022-04-17 10:54 | ECG_ITS ---
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 Measurements Intervals [place] Rate: 95 P: 82 PA: 139 QRS: 72 QRSD: 131 T: 68 QT: 381 QTc: 480 Interpretive Statements SINUS RHYTHM WITH SINUS ARRHYTHMIA POSSIBLE LEFT ATRIAL ENLARGEMENT [-0.1mV P-WAVE IN V1/V2] RIGHT BUNDLE BRANCH BLOCK [120+ ms QRS DURATION, UPRIGHT V1, 40+ ms S IN I/aVL/V4/V5/V6] Compared to ECG 04/13/2022 15:08:16 No significant changes Electronically Signed On 04-17-2022 12:59:07 CDT by Stan Dutta M.D. [id number]
--- NOTE | 2022-04-17 10:54 | XRR_ITS ---
PROCEDURE INFORMATION: Exam: XR Chest Exam date and time: 04/17/2022 11:04 AM Age: 36 years old Clinical indication: Pain; Chest pressure; Additional info: Cp TECHNIQUE: Imaging protocol: XR of the chest. Views: 1 view. COMPARISON: CR (CHEST, ) 04/14/2022 7:41 PM FINDINGS: Lungs: Hyperinflation and mild interstitial prominence. Pleural spaces: No pleural effusion. Heart/Mediastinum: Normal configuration of the heart. Bones/joints: Unremarkable. XR/XR chest 1V portable [id number] IMPRESSION: Hyperinflation and mild interstitial prominence.
[2022-04-17 11:11] LABS: Basophils % 0.4 %; Eosinophils % 0.5 %; Hematocrit 45.4 % (42.0-52.0); Hemoglobin 16.1 g/dL (11.7-16.6); Lymphocytes # 0.9 10^3/uL (0.8-4.8); Lymphocytes % 16.3 %; Mean Corpuscular HGB Conc 35.5 g/dL (30.0-36.0); Mean Corpuscular Hemoglobin 31.1 pg (28.0-34.0); Mean Corpuscular Volume 87.6 fl (80-94); Mean Platelet Volume 10.6 fL (7.4-10.4); Monocytes # 0.5 10^3/uL (0.2-0.9); Monocytes % 8.8 %; Neutrophils # 4.21 10^3/uL (1.8-7.7); Neutrophils % 73.8 %; Nucleated Red Blood Cells % 0 %; Platelet Count 188 10^3/cmm (130-400); Red Blood Count 5.18 10^6/uL (4.1-5.3); Red Cell Distribution Width 11.9 % (12.1-15.1); White Blood Count 5.7 10^3/uL (4.0-10.0)
[2022-04-17] MEDS: diazePAM 2 mg Tablet PO (11:12)
[2022-04-17 11:25] LABS: D Dimer <= 0.27 ug/mIFEU (0-0.59)
[2022-04-17 11:31] LABS: Alanine Aminotransferase 15 U/L (0-41); Albumin Level 4.8 g/dL (3.5-5.2); Alkaline Phosphatase 48 IU/L (40-130); Anion Gap 16.5 (5-19); Aspartate Amino Transferase 16 U/L (0-40); Blood Urea Nitrogen 9 mg/dL (6-20); Calcium 8.5 mg/dL (8.5-10.5); Carbon Dioxide 25 mmol/L (22-29); Chloride 102 mmol/L (98-107); Globulin 2.2 g/dL (1.3-4.6); Glomerular Filtration Rate 84.5 mL/min (90-130); Glucose 106 mg/dL (65-115); Osmolality Calculated 289 mOsm/kg (285-295); Potassium 3.5 mmol/L (3.5-5.1); Sodium 140 mmol/L (136-145); Total Bilirubin 1.2 mg/dL (0.15-1.2)
[2022-04-17 11:32] LABS: Troponin(5th) Baseline 8 ng/L (0-15)
[2022-04-17 13:20] VITALS: BP 126/80; PULSE 77; RESP 19; O2SAT 98
[2022-04-17 13:37] VITALS: BP 133/79; PULSE 75; RESP 16; O2SAT 97
[2022-04-17 13:53] LABS: Troponin 5 2HR 7.43 ng/L (0-15)
[2022-04-17 14:10] VITALS: BP 124/84; PULSE 68; O2SAT 95
[2022-04-17 14:23] VITALS: BP 124/84; PULSE 90; RESP 19; O2SAT 98
[2022-04-17 14:24] LABS: Troponin 5 2HR Delta -0.57 ABS# (0-10)
--- NOTE | 2022-04-17 15:30 | ED_ITS ---
HPI - Chest Pain General: Chief Complaint: Chest Pain Stated Complaint: Cant sleep, Wakes up with rapid heart rate Time Seen by Provider: 04/17/22 10:38 History of Present Illness: 36 yo male patient present to the ER stating he woke up with chest pressure and SOB. Pt denies any fever or recent illness. Pt states a month ago he came into the ER and thought he had a fib but it had resolved by the time he got to the ER. Pt states he does have hx of anxiety. Associated symptoms: Deny abdominal pain, diaphoresis, fever(s), nausea, palpitations, syncope or vomiting Review of Systems Const: Denies: fever(s), chills, body aches, change in appetite, change in weight, fatigue, malaise or diaphoresis Eyes: Denies: change in vision, blurry vision, blind spots, photophobia, eye discomfort, eye discharge, eye redness, floaters or seeing flashes ENMT: Denies: throat pain, uvular edema, enlarged tonsils, odynophagia, hoarseness, mouth pain, swelling of lips/tongue, oral sores, bleeding gums, dental pain, dry mouth, ear or mastoid pain, ear discharge, change in hearing, tinnitus, disequilibrium, nasal discharge, nasal congestion, post nasal drip or sinus pain Card: Denies: palpitations, irregular heart rhythm, edema, swelling of feet/ankles, lightheadedness, syncope, pre-syncope, dyspnea on exertion, orthopnea, leg pain with exertion or acrocyanosis Resp: Denies: productive cough, non-productive cough, wheezing, stridor, pain on inspiration, change in phlegm color, hemoptysis or chest congestion GI: Denies: abdominal pain, nausea, vomiting, hematemesis, dysphagia, diarrhea, constipation, GI cramping, change in bowel habits or rectal pain : Denies: flank pain, dysuria, urinary frequency, urinary urgency, urinary hesitancy or hematuria Musc: Denies: neck pain, back pain, extremity pain, extremity swelling, joint pain, joint swelling, joint redness, joint warmth or deformity Skin/Breast: Denies: rash, pruritus, erythema, sores, new lesions, changes in skin color or dry skin Neuro: Denies: headache(s), numbness in extremities, weakness in extremities, sensory changes, lack of coordination, difficulty walking, frequent falls, dizziness, vertigo, confusion, behavioral changes, Slurred speech present, difficulty communicating thoughts or seizure-like activity Psych: Denies: anxiety, depression, suicidal ideation or homicidal ideation Endo: Denies: polyuria, polydipsia, tired all the time, cold intolerance, excessive sweating, flushing, hot flashes or heat intolerance Maury/Lymph: Denies: easy bruising, easy bleeding, petechiae, purpura, enlarged lymph nodes or tender lymph nodes All/Imm: Denies: urticaria, throat swelling, tongue swelling, facial swelling, acute wheezing or itchy eyes PFSH ED PFSH: Medical History Ocular migraine Surgical History No pertinent past surgical history Social History Smoking and tobacco status: never smoked Alcohol intake: never Physical Exam Const: COMMON NORMALS: no acute distress, patient oriented x3, healthy appe aring, alert and well nourished GENERAL APPEARANCE: cooperative, comfortable, well kempt and well developed; not ill appearing ORIENTATION/CONSCIOUSNESS: Yes awake, Yes oriented to person, Yes oriented to place and Yes oriented to time HENMT: COMMON NORMALS: normocephalic, atraumatic, hearing grossly normal bilaterally, external ears normal, EAC's normal, TM's normal bilaterally, Normal external nose present, Normal nasal mucous membranes and turbinates present and moist oral mucous membranes HEAD & SCALP: normal to inspection, normocephalic and atraumatic FACE & SINUS: normal facial exam, sinuses nontender and face symmetric NOSE: Normal external nose present, Normal nares present, Normal nasal mucous membranes and turbinates present, No nasal discharge present and Abnormal external nose present EXTERNAL EAR: Yes external ears normal and Yes mastoids normal EXTERNAL AUDITORY CANAL: EAC's normal TYMPANIC MEMBRANE: T M's normal bilaterally MOUTH: Normal oral and palatal mucosa present, lip normal, tongue normal and Normal salivary glands and ducts present THROAT: no uvular edema Eye: COMMON NORMALS: Equal, round and reactive pupils present, EOMs intact bilaterally, conjunctivae normal, no scleral icterus and no papilledema GENERAL EYE: appearance normal, both eyes and all related structures EYELID: eyelids normal CONJUNCTIVA: Yes conjunctivae normal SCLERA: sclerae normal CORNEA: Yes corneas normal PUPIL: Yes Equal, round and reactive pupils present DIRECT OPHTHALMOSCOPY: Yes no papilledema Neck/C-Spine: COMMON NORMALS: full ROM, no lymphadenopathy, supple, no meningeal signs, no JVD and Thyroid normal GENERAL: Yes normal visual inspection and Yes trachea midline THYROID: Thyroid normal CERVICAL SPINE: Yes cervical ROM normal Lymph: LYMPHATIC: no lymphadenopathy noted and no lymphedema noted Chest: COMMONS NORMALS: normal inspection of the chest and normal palpation of entire chest wall Resp: COMMON NORMALS: normal respiratory effort, No retractions, No use of accessory muscles and clear to auscultation bilaterally EFFORT & INSPECTION: Yes able to speak in complete sentences and Yes symmetric chest movement AUSCULTATION: clear to auscultation bilaterally Cardio: COMMON NORMALS: no JVD, regular rate and regular rhythm RATE: regular rate RHYTHM: regular rhythm GI: COMMON NORMALS: Normal to inspection, nondistended, normoactive bowel sounds present, Soft to palpation, non-tender, No hepatosplenomegaly present, no masses and no bruits INSPECTION: Yes normal to inspection AUSCULTATION: Yes normoactive bowel sounds PALPATION: Yes Soft to palpation and Yes No hepatosplenomegaly present PERCUSSION: normal to percussion RECTAL EXAM: Yes deferred : COMMON NORMALS: Yes no CVA tenderness BLADDER/KIDNEY EXAM: Yes no CVA tenderness Back/Pelvis: COMMON NORMALS: no CVA tenderness, thoracic and lumbar spine normal to inspection, no thoracic nor lumbar tenderness, thoraco-lumbar ROM normal and straight leg raise negative bilaterally THORACIC SPINE/UPPER BACK: Yes normal to inspection LUMBAR SPINE/LOWER BACK: Yes normal to inspection Extremity: COMMON NORMALS: normal to inspection, full ROM and capillary refill normal GENERAL: Yes normal exam except as noted Neuro: COMMON NORMALS: patient oriented x3, CN's II-XII intact bilaterally, moves all extremities, no focal motor deficits, no sensory deficits noted and gait normal SENSORIUM/ORIENTATION: Yes alert, Yes oriented to person, Yes oriented to place and Yes oriented to time MENINGEAL SIGNS: Yes no meningeal signs CRANIAL NERVES: Yes CN normal except as noted SPEECH: speech normal GAIT: Yes Normal gait present SENSORY EXAM: Yes extremities Psych: COMMON NORMALS: mental status grossly normal, Normal thought process present, cooperative, normal affect, speech normal, activity/motor behavior normal, denies hallucinations, denies homicidal ideation and denies suicidal ideation APPEARANCE: Yes grossly normal and Yes well kempt ATTITUDE: Yes calm ACTIVITY/MOTOR BEHAVIOR: Yes appropriate eye contact SPEECH: Yes normal speech THOUGHT PROCESS: Normal thought process present THOUGHT CONTENT: Yes Normal thought content present ATTENTION/CONCENTRATION: Yes att ention grossly intact MEMORY/COGNITION: Yes memory grossly intact INSIGHT: Good insight present (Psych) JUDGEMENT: Good judgement present (Psych) Skin: COMMON NORMALS: no rashes or lesions noted, no wounds, turgor normal, no jaundice, no petechiae and no mottling GENERAL SKIN EXAM: no rashes or lesions noted and turgor normal Course Vital Signs: Vital signs: Vital Signs Temperature 97.7 F 04/17/22 10:43 Pulse Rate 90 04/17/22 14:23 Respiratory Rate 19 H 04/17/22 14:23 Blood Pressure 124/84 04/17/22 14:23 Pulse Oximetry 98 04/17/22 14:23 MDM - Chest Pain Medical Decision Making Patient is well appearing non toxic and in no acute distress. 36 yo male patient present to the ER stating he woke up with chest pressure and SOB. Pt denies any fever or recent illness. Pt states a month ago he came into the ER and thought he had a fib but it had resolved by the time he got to the ER. Pt states he does have hx of anxiety. Pt states his symptoms have resolved at this time. EKG does not show any a fib st elevation or depression and delta trop is negative this making cardiac ischemia unlikely. Pts labs are unremarkable. chest xray with no acute findigs. [facility]. pt dnies any SI or HI. Lab Data : 04/17/22 11:03 04/17/22 11:03 Radiology Impressions Chest X-Ray 04/17/22 10:54 IMPRESSION: Hyperinflation and mild interstitial prominence. Laboratory Results WBC 5.7 10^3/uL (4.0-10.0) 04/17/22 11:03 RBC 5.18 10^6/uL (4.1-5.3) 04/17/22 11:03 Hgb 16.1 g/dL (11.7-16.6) 04/17/22 11:03 Hct 45.4 % (42.0-52.0) 04/17/22 11:03 MCV 87.6 fl (80-94) 04/17/22 11:03 MCH 31.1 pg (28.0-34.0) 04/17/22 11:03 MCHC 35.5 g/dL (30.0-36.0) 04/17/22 11:03 RDW 11.9 % (12.1-15.1) L 04/17/22 11:03 Plt Count 188 10^3/cmm (130-400) 04/17/22 11:03 MPV 10.6 fL (7.4-10.4) H 04/17/22 11:03 Neut % (Auto) 73.8 % 04/17/22 11:03 Lymph % (Auto) 16.3 % 04/17/22 11:03 Harney % (Auto) 8.8 % 04/17/22 11:03 Eos % (Auto) 0.5 % 04/17/22 11:03 Baso % (Auto) 0.4 % 04/17/22 11:03 Neut # (Auto) 4.21 10^3/uL (1.8-7.7) 04/17/22 11:03 Lymph # (Auto) 0.9 10^3/uL (0.8-4.8) 04/17/22 11:03 [place] # (Auto) 0.5 10^3/uL (0.2-0.9) 04/17/22 11:03 Eos # (Auto) 0.0 10^3/uL (0.0-0.8) 04/17/22 11:03 Baso # (Auto) 0.0 10^3/uL (0.0-0.1) 04/17/22 11:03 Nucleated RBC % (auto) 0 % 04/17/22 11:03 Nucleated RBCs # 0.0 /100WBC 04/17/22 11:03 D-Dimer <= 0.27 ug/mIFEU (0-0.59) 04/17/22 11:03 Sodium 140 mmol/L (136-145) 04/17/22 11:03 Potassium 3.5 mmol/L (3.5-5.1) 04/17/22 11:03 Chloride 102 mmol/L (98-107) 04/17/22 11:03 Carbon Dioxide 25 mmol/L (22-29) 04/17/22 11:03 Anion Gap 16.5 (5-19) 04/17/22 11:03 BUN 9 mg/dL (6-20) 04/17/22 11:03 Creatinine 1.0 mg/dL (0.7-1.2) 04/17/22 11:03 GFR Calculation 84.5 mL/min (90-130) L 04/17/22 11:03 Glucose 106 mg/dL (65-115) 04/17/22 11:03 Calculated Osmolality 289 mOsm/kg (285-295) 04/17/22 11:03 Calcium 8.5 mg/dL (8.5-10.5) 04/17/22 11:03 Total Bilirubin 1.2 mg/dL (0.15-1.2) 04/17/22 11:03 AST 16 U/L (0-40) 04/17/22 11:03 ALT 15 U/L (0-41) 04/17/22 11:03 Alkaline Phosphatase 48 IU/L (40-130) 04/17/22 11:03 Troponin T Baseline 8 ng/L (0-15) 04/17/22 11:03 Troponin T 120 Minute 7.43 ng/L (0-15) 04/17/22 13:08 Delta Troponin T -0.57 ABS# (0-10) L 04/17/22 13:08 Total Protein 7.0 g/dL (6.6-8.7) 04/17/22 11:03 Albumin 4.8 g/dL (3.5-5.2) 04/17/22 11:03 Globulin 2.2 g/dL (1.3-4.6) 04/17/22 11:03 Discharge Plan Discharge Patient Disposition: Home Clinical Impression: Anxiety Condition: Stable Prescriptions: New Vistaril 50 mg capsule 50 mg PO TID PRN (Reason: anxiety) Qty: 30 0RF No Action ondansetron 4 mg tablet,disintegrating 4 mg PO Q8H PRN (Reason: nausea and vomiting) Qty: 15 0RF Discharge Orders: Discharge ED (Routine); Ordered 04/17/22 Ordered By: Cara Kaur Discharge Diet: Advance as tolerated Discharge Activity: Resume usual activity Patient Instructions: Opioid Safety Activity Restrictions/Additional Instructions: Return to ER with any worsening of symptoms such as chest pain, shortness of breath or thoughts of wanting to harm yourself Take medication as directed [facility] with [facility] Coding Level of Care Code ED Glove Former for Nick Parks
== END 2022-04-17 14:24 | disposition home or self-care (01) ==
PROVIDERS: Emergency Provider Registered Nurse
DX: F41.9 Anxiety disorder, unspecified (principal)
CPT/HCPCS: 71045; 80053; 84484; 85025; 85378; 93005; 99284

== ENCOUNTER → 2022-04-20 14:09 | Outpatient (BNVA) | payer OTHER, SELFPAY | PROVIDERS: Visit Provider Internal Medicine | DX: I48.0 Paroxysmal atrial fibrillation (principal); R07.9 Chest pain, unspecified; R06.02 Shortness of breath | CPT/HCPCS: 99204 ==

== ENCOUNTER 2022-05-11 06:13 | Outpatient (CLI) | payer OTHER, SELFPAY ==
--- NOTE | 2022-05-11 06:30 | USCV_ITS ---
Brayan Marinelli Age: 36 Gender: M : 1985 Exam Date: 05/11/2022 06:21 Ordering Phys: Stan Dutta M.D ([email or web address]) Technologist: Exam Location: [facility] [place] Indication: PALP BP: 121 / 72 HR: 73 Rhythm: Sinus Technical Quality: MEASUREMENTS (Male / Female) Normal Values 2D ECHO LV Diastolic Diameter PLAX 5.1 cm 4.2 - 5.9 / 3.9 - 5.3 cm LV Systolic Diameter PLAX 3.3 cm IVS Diastolic Thickness 1.0 cm 0.6 - 1.0 / 0.6 - 0.9 cm IVS Systolic Thickness 1.3 cm LVPW Diastolic Thickness 0.8 cm 0.6 - 1.0 / 0.6 - 0.9 cm LVPW Systolic Thickness 1.4 cm LVOT Diameter 2.0 cm LV Ejection Fraction 2D Teich 64.1 % LV Ejection Fraction MOD 2C 61.2 % LV Ejection Fraction 2C AL 61.3 % LA Diameter 2.7 cm Aorta at Sinotubular Diameter 2.5 cm IVC Diameter 1.7 cm M-MODE LV Diastolic Diameter MM 5.6 cm 4.2 - 5.9 / 3.9 - 5.3 cm LV Systolic Diameter MM 3.7 cm LV Ejection Fraction MM Teich 62.1 % IVS Diastolic Thickness MM 0.7 cm 0.6 - 1.0 / 0.6 - 0.9 cm IVS Systolic Thickness MM 1.0 cm LVPW Diastolic Thickness MM 0.9 cm 0.6 - 1.0 / 0.6 - 0.9 cm LVPW Systolic Thickness MM 1.3 cm RV Diastolic Diameter MM 1.8 cm Aortic Annulus Diameter 3.0 cm LA Ao Ratio MM 1.0 MV E Point Septal Separation 0.8 cm DOPPLER AV Peak Velocity 125.7 cm/s LVOT Peak Velocity 103.0 cm/s AV Area Cont Eq vti 2.5 cm squared AV Area Cont Eq pk 2.7 cm squared MV Area PHT 5.0 cm squared Mitral E to A Ratio 1.3 MV E' Velocity 51.5 cm/s Mitral E to MV E' Ratio 5.8 Mitral E to LV E' Lateral Ratio 5.0 Mitral E to LV E' Septal Ratio 7.1 TR Peak Velocity 146.0 cm/s TR Peak Gradient 8.5 mmHg TV Peak E Velocity 105.0 cm/s Right Atrial Pressure 3.0 mmHg Pulmonary Artery Systolic Pressu 11.5 mmHg PV Peak Velocity 70.0 cm/s FINDINGS Left Ventricle Normal left ventricular size. LV systolic function is normal with EF of 55-60%. No regional wall motion abnormalities. Normal diastolic filling pattern. Right Ventricle The right ventricle is normal in size and function. Right Atrium The right atrium is normal in size. Left Atrium The left atrium is normal in size. Mitral Valve Structurally normal mitral valve without significant stenosis or prolapse. There is no mitral regurgitation. Aortic Valve Structurally normal aortic valve without significant sclerosis or stenosis. There is no aortic regurgitation. Tricuspid Valve Structurally normal tricuspid valve without significant stenosis. Trace tricuspid regurgitation. Pulmonary artery systolic pressure is normal. Pulmonic Valve No significant stenosis or regurgitation Pericardium Normal pericardium without effusion. Aorta Normal ascending aorta dimension. IVC CONCLUSIONS LV systolic function is normal with EF of 55-60% Diastolic function is normal Trace tricuspid regurgitation No comparison studies are available Stan Dutta MD (Electronically Signed) Final Date: 15 May 2022 09:22 S
== END 2022-05-11 06:14 | disposition home or self-care (01) ==
LOC: RAD 06:14
PROVIDERS: Visit Provider Internal Medicine
DX: I48.91 Unspecified atrial fibrillation (principal)
CPT/HCPCS: 93306

== ENCOUNTER 2022-05-18 20:00 | Outpatient (CLI) | payer OTHER, SELFPAY | END 2022-05-18 20:01 | disposition home or self-care (01) | LOC: SLEEP 05-19 05:27 | PROVIDERS: Visit Provider Nurse Practitioner | DX: G47.10 Hypersomnia, unspecified (principal); R06.83 Snoring; R53.83 Other fatigue | CPT/HCPCS: 95810 ==

== ENCOUNTER → 2022-05-25 13:57 | Outpatient (BNVA) | payer OTHER, SELFPAY | PROVIDERS: PCP Nurse Practitioner; Visit Provider Internal Medicine Cardiovascular Disease | DX: I48.91 Unspecified atrial fibrillation (principal) | CPT/HCPCS: 99214 ==

== ENCOUNTER 2022-07-05 12:12 | Outpatient (CLI) | payer OTHER, SELFPAY ==
--- NOTE | 2022-07-05 12:24 | CT_ITS ---
WS: [id number] CT HEAD TECHNIQUE: Noncontrast CT of the head obtained from the skullbase to the vertex. CLINICAL INFORMATION: MIGRAINES/NEW ONSET ANXIETY/PANIC ATTACKS COMPARISON: DLP: 1067.[address] scans at [facility] use at least one of these dose optimization techniques: automated e xposure control; mA and/or kV adjustment per patient size (includes targeted exams where dose is matc hed to clinical indication); or iterative reconstruction. FINDINGS: No evidence of intracranial hemorrhage or mass effect. Ventricular system and basal cisterns are cervantes nt. No extra-axial fluid collections. No evidence of mass or mass effect. Normal rodriguez-white different iation. Paranasal sinuses and mastoid air cells are well aerated. .Normal visualized soft tissues. CT/CT head wo con* [id number] IMPRESSION: 1. No evidence of intracranial hemorrhage or mass effect. 2. No acute intracranial findings.
== END 2022-07-05 12:13 | disposition home or self-care (01) ==
PROVIDERS: PCP Nurse Practitioner; Visit Provider Nurse Practitioner
DX: Z01.89 Encounter for other specified special examinations (principal); G43.909 Migraine, unspecified, not intractable, without status migrainosus; F41.9 Anxiety disorder, unspecified
CPT/HCPCS: 70450

== ENCOUNTER 2022-07-12 14:19 | Outpatient (CLI) | payer OTHER, SELFPAY ==
--- NOTE | 2022-07-12 14:27 | US_ITS ---
WS: [id number] Exam: US renal BI* [id number] Date/Time of Exam: 07/12/2022 3:14 PM Reason For Exam: CONCERNS REGARDING ADRENAL GLANDS The kidneys are of normal size shape and location. No sign of solid or cystic renal mass. No sign of renal obstruction. The right kidney measures 11.42 x 4.3 x 5.3 cm. Right renal cortex measures 1.04 c m at greatest thickness. The left kidney measures 10.36 x 4.8 x 5.2 cm. Left renal cortex measures 1. 7 cm at greatest thickness. Both kidneys are well perfused. There were no masses identified in the ad renal regions. US/US renal BI* [id number] IMPRESSION: 1. Unremarkable bilateral renal ultrasound.
== END 2022-07-12 14:20 | disposition home or self-care (01) ==
LOC: RAD 14:21
PROVIDERS: PCP Nurse Practitioner; Visit Provider Nurse Practitioner
DX: Z01.89 Encounter for other specified special examinations (principal)
CPT/HCPCS: 76770

== ENCOUNTER → 2023-05-17 13:54 | Outpatient (BNVA) | payer OTHER, SELFPAY | PROVIDERS: PCP Nurse Practitioner; Visit Provider Internal Medicine | DX: I48.91 Unspecified atrial fibrillation (principal); R06.02 Shortness of breath; Z79.82 Long term (current) use of aspirin | CPT/HCPCS: 99214 ==

== ENCOUNTER → 2024-05-16 12:44 | Outpatient (BNVA) | payer OTHER, SELFPAY | PROVIDERS: PCP Nurse Practitioner; Visit Provider Internal Medicine Cardiovascular Disease | DX: I48.91 Unspecified atrial fibrillation (principal); R00.2 Palpitations | CPT/HCPCS: 99214 ==

== ENCOUNTER → 2024-06-29 10:05 | Outpatient (BNVA) | payer OTHER, SELFPAY | PROVIDERS: PCP Nurse Practitioner; Visit Provider Nurse Practitioner Family | DX: I48.0 Paroxysmal atrial fibrillation (principal) | CPT/HCPCS: 99213 ==

== ENCOUNTER → 2024-09-03 13:00 | Outpatient (BNVA) | payer OTHER, SELFPAY | PROVIDERS: PCP Nurse Practitioner; Visit Provider Internal Medicine Cardiovascular Disease | DX: I48.0 Paroxysmal atrial fibrillation (principal) | CPT/HCPCS: 99213 ==

== ENCOUNTER 2024-09-03 20:00 | Outpatient (CLI) | payer OTHER, SELFPAY | END 2024-09-03 20:01 | disposition home or self-care (01) | LOC: SLEEP 22:40 | PROVIDERS: PCP Nurse Practitioner; Visit Provider Nurse Practitioner | DX: R06.81 Apnea, not elsewhere classified (principal) | CPT/HCPCS: 95810 ==

== ENCOUNTER 2025-01-09 07:05 | Emergency (ER) | payer OTHER, SELFPAY ==
--- NOTE | 2025-01-09 07:12 | ECG_ITS ---
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 Measurements Intervals [place] Rate: 121 P: 0 ND: 0 QRS: 78 QRSD: 124 T: 64 QT: 323 QTc: 460 Interpretive Statements ATRIAL FIBRILLATION WITH RAPID VENTRICULAR RESPONSE RIGHT BUNDLE BRANCH BLOCK [120+ ms QRS DURATION, UPRIGHT V1, 40+ ms S IN I/aVL/V4/V5/V6] Compared to ECG 04/17/2022 11:12:14 Sinus rhythm no longer present Sinus arrhythmia no longer present Electronically Signed On 01-09-2025 18:24:33 PIANO TECHNICIAN by Sukhwinder Brooks M.D. [email or web address]
[2025-01-09 07:19] VITALS: BP 130/92; PULSE 122; RESP 17; TEMP 36.6; O2SAT 98; BMI 21.9
[2025-01-09] MEDS: dilTIAZem 5 mg/mL SDV 5 mL 10 MG IVP (07:31)
[2025-01-09] MEDS: dilTIAZem 100 MG in sodium chloride 0.9% (add-van) 100 ML IV (07:32)
--- NOTE | 2025-01-09 07:50 | W.ED.ARRPALP ---
HPI - Arrhythmia/Palpitations General: Chief Complaint: Arrhythmia/Palpitations Stated Complaint: chest pain Time Seen by Provider: 01/09/25 07:33 History of Present Illness: 39-year-old male presents emergency room with complaints of palpitation and heart racing. He has previously been diagnosed with atrial fibrillation he has not really had any problems that he has not been taking any regular medications he has a prescriptions for metoprolol succinate but he only takes as needed he is not sure when the last time he might of taken it was. Because his A-fib has been for the most with paroxysmal he has not been treated on a regular basis he has been asked to take a full baby aspirin. He has some anxiety issues he said he thought at first this was more anxiety. He is on BuSpar and hydroxyzine for that he took a hydroxyzine this morning and it did not help he came to the emergency room. He denies any chest pain or shortness of breath at this time. Patient denies drug use no regular use of caffeine and energy drinks etc. He has not used any decongestants or nasal sprays [id number] recently. No recent flu cough or cold-like symptoms. Related Data Home Medications ?Medication ?Instructions ?Recorded ?Confirmed buspirone 10 mg tablet 10 mg PO TID 01/09/25 01/09/25 hydroxyzine HCl 25 mg tablet 25 mg PO TID PRN panic attacks 01/09/25 01/09/25 metoprolol succinate 25 mg 25 mg PO DAILY PRN bp 01/09/25 01/09/25 tablet,extended release 24 hr Previous Rx's ?Medication ?Instructions ?Recorded aspirin 325 mg tablet 325 mg PO DAILY #30 tabs 01/09/25 metoprolol succinate 25 mg 25 mg PO DAILY #30 tabs 01/09/25 tablet,extended release 24 hr Allergies Allergy/AdvReac Type Severity Reaction Status Date / Time Alpha-Gal Allergy Unknown Verified 01/09/25 07:30 (Hqkpmpmbn-Wqxws-9,3-Gala brimonidine (From Alphagan P) Allergy Unknown Verified 01/09/25 07:30 egg Allergy Unknown Verified 01/09/25 07:30 milk Allergy ADR-Heartbu Verified 01/09/25 07:30 rn peanut Allergy ALGY-Anaphy Verified 01/09/25 07:30 laxis soy Allergy Unknown Verified 01/09/25 07:30 spinach Allergy Unknown Verified 01/09/25 07:30 tree nut Allergy Unknown Verified 01/09/25 07:30 walnut Allergy Unknown Verified 01/09/25 07:30 wheat Allergy Unknown Verified 01/09/25 07:30 Review of Systems Const: Denies: fever(s) or chills Card: Denies: chest pain Resp: Denies: dyspnea GI: Denies: abdominal pain : Denies: dysuria, urinary frequency or urinary urgency Musc: Denies: neck pain or back pain Skin/Breast: Denies: rash PFSH ED PFSH: Medical History Atrial fibrillation Ocular migraine Surgical History No pertinent past surgical history Family History Father Palpitations Other Atrial fibrillation Social History Smoking and tobacco/nicotine status: unknown if used tobacco/nicotine Alcohol intake: never Substance/Drug Use: never Physical Exam Const: COMMON NORMALS: no acute distress GENERAL APPEARANCE: cooperative and comfortable ORIENTATION/CONSCIOUSNESS: Yes awake, Yes oriented to person, Yes oriented to place and Yes oriented to time HENMT: COMMON NORMALS: normocephalic, atraumatic and hearing grossly normal bilaterally HEAD & SCALP: normocephalic and atraumatic Resp: COMMON NORMALS: normal respiratory effort, No retractions, No use of accessory muscles and clear to auscultation bilaterally AUSCULTATION: clear to auscultation bilaterally Cardio: RATE: tachycardic RHYTHM: abnormal rhythm irregularly irregular GI: COMMON NORMALS: Soft to palpation and No hepatosplenomegaly present AUSCULTATION: Yes normoactive bowel sounds PALPATION: Yes Soft to palpation, No Tenderness to palpation present (GI), No Guarding due to palpation present (GI) and Yes No hepatosplenomegaly present Extremity: COMMON NORMALS: normal to inspection, capillary refill normal, no clubbing, cyanosis or edema, no calf tenderness and no pedal edema Neuro: SENSORIUM/ORIENTATION: Yes oriented to person, Yes oriented to place and Yes oriented to time Skin: COMMON NORMALS: no rashes or lesions noted GENERAL SKIN EXAM: no rashes or lesions noted Course Vital Signs: Vital signs: Vital Signs Temperature 97.9 F 01/09/25 07:19 Pulse Rate 73 01/09/25 11:16 Respiratory Rate 17 01/09/25 07:19 Blood Pressure 104/63 01/09/25 11:16 Pulse Oximetry 96 01/09/25 11:16 Oxygen Delivery Me thod Room Air 01/09/25 07:19 MDM - Arrhythmia/Palpitations Medical Decision Making Patient given Cardizem bolus and drip. Was also given his regular dose of metoprolol. We were able to titrate the Cardizem off his rate remained controlled. Discharge patient home on metoprolol succinate 25 mg once daily have him take full-size baby aspirin and follow-up with cardiology over the next 10 to 14 days set up 72-hour Holter monitor to evaluate for breakthrough rapid ventricular response return for more symptoms. Medical Records I reviewed the patient's medical records. Lab Data I reviewed the patient's lab results. 01/09/25 07:41 01/09/25 07:41 Laboratory Results WBC 7.45 10^3/uL (3.29-11.43) 01/09/25 07:41 RBC 5.64 10^6/uL (3.85-5.65) 01/09/25 07:41 Hgb 17.20 g/dL (11.27-16.99) H 01/09/25 07:41 Hct 50.8 % (37-53) 01/09/25 07:41 MCV 90.1 fl (82-101) 01/09/25 07:41 MCH 30.5 pg (27-33) 01/09/25 07:41 MCHC 33.9 g/dL (30-55) 01/09/25 07:41 RDW 11.9 % (12.1-15.1) L 01/09/25 07:41 Plt Count 202 10^3/cmm (157-399) 01/09/25 07:41 MPV 10.9 fL (7.4-10.4) H 01/09/25 07:41 Neut % (Auto) 47.9 % 01/09/25 07:41 Lymph % (Auto) 39.2 % 01/09/25 07:41 [place] % (Auto) 9.7 % 01/09/25 07:41 Eos % (Auto) 2.4 % 01/09/25 07:41 Baso % (Auto) 0.7 % 01/09/25 07:41 Neut # (Auto) 3.57 10^3/uL (1.8-7.7) 01/09/25 07:41 Lymph # (Auto) 2.9 10^3/uL (0.8-4.8) 01/09/25 07:41 [place] # (Auto) 0.7 10^3/uL (0.2-0.9) 01/09/25 07:41 Eos # (Auto) 0.2 10^3/uL (0.0-0.8) 01/09/25 07:41 Baso # (Auto) 0.1 10^3/uL (0.0-0.1) 01/09/25 07:41 Nucleated RBC % (auto) 0 % 01/09/25 07:41 Nucleated RBCs # 0.0 /100WBC 01/09/25 07:41 Sodium 140 mmol/L (136-145) 01/09/25 07:41 Potassium 3.3 mmol/L (3.5-5.1) L 01/09/25 07:41 Chloride 101 mmol/L (98-107) 01/09/25 07:41 Carbon Dioxide 25 mmol/L (22-29) 01/09/25 07:41 Anion Gap 17.3 (5-19) 01/09/25 07:41 BUN 9 mg/dL (6-20) 01/09/25 07:41 Creatinine 1.0 mg/dL (0.7-1.2) 01/09/25 07:41 GFR Calculation 83.2 mL/min (90-130) L 01/09/25 07:41 Glucose 106 mg/dL (65-115) 01/09/25 07:41 Calculated Osmolality 289 mOsm/kg (285-295) 01/09/25 07:41 Calcium 9.6 mg/dL (8.5-10.5) 01/09/25 07:41 Total Bilirubin 0.9 mg/dL (0.15-1.2) 01/09/25 07:41 AST 21 U/L (0-40) 01/09/25 07:41 ALT 26 U/L (0-41) 01/09/25 07:41 Alkaline Phosphatase 77 U/L (40-130) 01/09/25 07:41 Total Protein 7.7 g/dL (6.6-8.7) 01/09/25 07:41 Albumin 4.6 g/dL (3.5-5.2) 01/09/25 07:41 Globulin 3.1 g/dL (1.3-4.6) 01/09/25 07:41 TSH 2.70 uIU/mL (0.27-4.20) 01/09/25 07:41 Urine Color Yellow (Yellow) 01/09/25 07:52 Urine Appearance Clear (CLEAR) 01/09/25 07:52 Urine pH 6.0 (5-7) 01/09/25 07:52 Ur Specific [place] 1.007 (1.005-1.030) 01/09/25 07:52 Urine Protein Negative (Negative) 01/09/25 07:52 Urine Glucose (UA) Negative (Normal) 01/09/25 07:52 Urine Ketones Negative (Negative) 01/09/25 07:52 Urine Blood Negative (Negative) 01/09/25 07:52 Urine Nitrate Negative (Negative) 01/09/25 07:52 Urine Bilirubin Negative (Negative) 01/09/25 07:52 Urine Urobilinogen 0.2 mg/dL (Negative) 01/09/25 07:52 Ur Leukocyte Esterase Negative (Negative) 01/09/25 07:52 Amorphous Sediment Not Reportable 01/09/25 07:52 Urine Opiates Screen Negative ng/mL (Negative) 01/09/25 07:52 Ur Barbiturates Screen Negative ng/mL (Negative) 01/09/25 07:52 Ur Phencyclidine Scrn Negative ng/mL (Negative) 01/09/25 07:52 Ur Amphetamines Screen Negative ng/mL (Negative) 01/09/25 07:52 U Benzodiazepines Scrn Negative ng/mL (Negative) 01/09/25 07:52 Urine Cocaine Screen Negative ng/mL (Negative) 01/09/25 07:52 U Marijuana (THC) Screen Negative ng/mL (Negative) 01/09/25 07:52 All radiology interpretation(s) finalized by discharge Discharge Plan Discharge Patient Disposition: Home Clinical Impression: Atrial fibrillation Qualifiers: Atrial fibrillation type: paroxysmal Qualified Code(s): I48.0 - Paroxysmal atrial fibrillation Condition: Stable Prescriptions: New metoprolol succinate 25 mg tablet extended release 24 hr 25 mg PO DAILY Qty: 30 0RF aspirin 325 mg tablet 325 mg PO DAILY Qty: 30 0RF No Action buspirone [BuSpar] 10 mg Tablet 10 mg PO TID hydroxyzine HCl 25 mg Tablet 25 mg PO TID PRN (Reason: panic attacks) metoprolol succinate 25 mg tablet extended release 24 hr 25 mg PO DAILY PRN (Reason: bp) Discharge Orders: Discharge ED (Routine); Ordered 01/09/25 Ordered By: Romeo Gautam Referrals: Reena Ivy FNP [Primary Care Provider] - Discharge Diet: As Directed Discharge Activity: Resume usual activity Patient Instructions: Opioid Safety, Pain Management Activity Restrictions/Additional Instructions: Thank you for choosing [facility] for your healthcare needs today. It is very important that you follow up as instructed or that you return to the Emergency Department should you have concerns or if your condition changes or worsens in any way. You are seen in the emergency room for A-fib with rapid ventricular response he responded well to medications we are able to take you off of the IV medications once you were given your usual dose of metoprolol. 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 Case management make arrangements for you to have an outpatient 72-hour Holter monitor to monitor your heart rhythm for variations. Print Language: Greek Coding Level of Care Code ED Blemish Remover for Nick Parks
[2025-01-09 07:54] LABS: Basophils # 0.1 10^3/uL (0.0-0.1); Basophils % 0.7 %; Eosinophils # 0.2 10^3/uL (0.0-0.8); Eosinophils % 2.4 %; Hematocrit 50.8 % (37-53); Lymphocytes # 2.9 10^3/uL (0.8-4.8); Lymphocytes % 39.2 %; Mean Corpuscular HGB Conc 33.9 g/dL (30-55); Mean Corpuscular Hemoglobin 30.5 pg (27-33); Mean Corpuscular Volume 90.1 fl (82-101); Mean Platelet Volume 10.9 fL (7.4-10.4); Monocytes # 0.7 10^3/uL (0.2-0.9); Monocytes % 9.7 %; Neutrophils # 3.57 10^3/uL (1.8-7.7); Neutrophils % 47.9 %; Nucleated Red Blood Cells % 0 %; Platelet Count 202 10^3/cmm (157-399); Red Blood Count 5.64 10^6/uL (3.85-5.65); Red Cell Distribution Width 11.9 % (12.1-15.1); White Blood Count 7.45 10^3/uL (3.29-11.43)
--- NOTE | 2025-01-09 08:06 | ECG_ITS ---
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 Measurements Intervals [place] Rate: 80 P: 0 MN: 0 QRS: 72 QRSD: 126 T: 74 QT: 373 QTc: 431 Interpretive Statements ATRIAL FIBRILLATION POSSIBLE RIGHT VENTRICULAR CONDUCTION DELAY [RSR (QR) IN V1/V2] MODERATE ST DEPRESSION [0.05+ mV ST DEPRESSION] Compared to ECG 01/09/2025 07:12:32 ST (T wave) deviation now present Right bundle-branch block no longer present Electronically Signed On 01-09-2025 18:24:44 ABSORPTION AND ADSORPTION ENGINEER by Sukhwinder Brooks M.D. [id number]
[2025-01-09 08:10] LABS: Alanine Aminotransferase 26 U/L (0-41); Albumin Level 4.6 g/dL (3.5-5.2); Alkaline Phosphatase 77 U/L (40-130); Anion Gap 17.3 (5-19); Aspartate Amino Transferase 21 U/L (0-40); Blood Urea Nitrogen 9 mg/dL (6-20); Calcium 9.6 mg/dL (8.5-10.5); Carbon Dioxide 25 mmol/L (22-29); Chloride 101 mmol/L (98-107); Creatinine Clr Calc Pharmacy 115.6613; Globulin 3.1 g/dL (1.3-4.6); Glomerular Filtration Rate 83.2 mL/min (90-130); Glucose 106 mg/dL (65-115); Osmolality Calculated 289 mOsm/kg (285-295); Potassium 3.3 mmol/L (3.5-5.1); Sodium 140 mmol/L (136-145); Total Bilirubin 0.9 mg/dL (0.15-1.2); Total Protein 7.7 g/dL (6.6-8.7)
[2025-01-09] MEDS: metoprolol succinate ER (24 HR) 25 mg Tablet PO (08:29)
[2025-01-09 08:33] LABS: Add Urine Microscopic? NO
[2025-01-09 09:05] LABS: Amphetamines Screen Urine Negative (Negative); Barbiturates Screen Urine Negative (Negative); Benzodiazepines Screen Urine Negative (Negative); Cocaine Screen Urine Negative (Negative); Opiate Screen Urine Negative (Negative); PCP Screen Urine Negative (Negative); THC Screen Urine Negative (Negative)
[2025-01-09 09:41] LABS: Bilirubin Urine Negative (Negative); Blood Urine Negative (Negative); Glucose Urine UA Negative (Normal); Ketones Urine Negative (Negative); Leukocyte Esterase Urine Negative (Negative); Nitrate Urine Negative (Negative); Protein Urine Negative (Negative); Specific Gravity, Urine 1.007 (1.005-1.030); Urine Appearance Clear (CLEAR); Urine Color Yellow (Yellow); Urobilinogen Urine 0.2 mg/dL (Negative)
[2025-01-09 09:42] LABS: Charge for UA Resulting for Rev
[2025-01-09 09:57] VITALS: BP 99/72; PULSE 63; O2SAT 95
--- NOTE | 2025-01-09 10:47 | PC.PHAR ---
[facility]. Pt does know what he takes.
[2025-01-09 11:16] VITALS: BP 104/63; PULSE 73; O2SAT 96
--- NOTE | 2025-01-10 08:17 | DCPLANNER ---
message heart care for er f/u
== END 2025-01-09 11:19 | disposition home or self-care (01) ==
PROVIDERS: Emergency Provider Family Medicine; PCP Nurse Practitioner
DX: I48.0 Paroxysmal atrial fibrillation (principal)
CPT/HCPCS: 36415; 80053; 80306; 81003; 84443; 85025; 93005; 96365; 96366; 96375; 99284; J3490

== ENCOUNTER → 2025-01-31 14:17 | Outpatient (BNVA) | payer OTHER, SELFPAY | PROVIDERS: PCP Nurse Practitioner; Visit Provider Nurse Practitioner Family | DX: I48.0 Paroxysmal atrial fibrillation (principal) | CPT/HCPCS: 36415; 80048; 83735; 99214 ==

== ENCOUNTER 2025-02-12 11:59 | Outpatient (CLI) | payer OTHER, SELFPAY ==
--- NOTE | 2025-02-12 | ECG_ITS ---
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 Interpretive Statements Lung unchanged pre/post procedure; Intraprocedure shortess of breath; Symptoms resoled by discharge PROCEDURE: At the baseline, the patient's blood pressure was 119/68 with a heart rate of 81/min. The baseline electrocardiogram showed normal sinus rhythm with incomplete right bundle branch block pattern. The patient exercised for 10 minutes on a standard [place] protocol. Patient attained a maximum heart rate of 161 beats per minute(88% of the maximum predicted heart rate) with a blood pressure at the peak exercise of 161/56 mm Hg. The EKG at the peak exercise revealed no significant changes. Patient did not have any chest pain or any significant cardiac arrhythmias with the exercise During the recovery phase, there were no new changes. No significant arrhythmias were noted Blood pressure at the end of the recovery phase was 136/66 mm Hg with a heart rate of 104 per minute. CONCLUSION: 1. Normal EKG response to treadmill exercise 2. No exercise-induced chest pain or cardiac arrhythmia 3. Good exercise tolerance, attained a maximum of 13.5 METs 4 Electronically Signed On 02-15-2025 16:26:20 CDT by Sukhwinder Brooks M.D. [email or web address]
[2025-02-12 12:13] VITALS: BMI 21.2
[2025-02-12 12:44] VITALS: BP 136/66; PULSE 98
== END 2025-02-12 12:00 | disposition home or self-care (01) ==
LOC: CDL 12:02
PROVIDERS: PCP Nurse Practitioner; Visit Provider Nurse Practitioner Family
DX: I48.91 Unspecified atrial fibrillation (principal)
CPT/HCPCS: 93017

== ENCOUNTER 2025-02-19 22:58 | Emergency (ER) | payer OTHER, SELFPAY ==
[2025-02-19 23:08] VITALS: BP 121/72; PULSE 79; RESP 18; TEMP 36.6; O2SAT 98; BMI 21.2
--- NOTE | 2025-02-19 23:11 | ECG_ITS ---
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 Measurements Intervals [place] Rate: 76 P: 86 NM: 142 QRS: 77 QRSD: 124 T: 74 QT: 379 QTc: 427 Interpretive Statements SINUS RHYTHM MODERATE INTRAVENTRICULAR CONDUCTION DELAY [110+ ms QRS DURATION] Compared to ECG 01/09/2025 08:06:06 Intraventricular conduction delay now present Atrial fibrillation no longer present ST (T wave) deviation no longer present Electronically Signed On 02-20-2025 12:32:00 CDT by Sukhwinder Brooks M.D. [email or web address] [id number]
[2025-02-19 23:44] LABS: Basophils % 0.3 %; Eosinophils # 0.2 10^3/uL (0.0-0.8); Hematocrit 43.8 % (37-53); Lymphocytes # 1.8 10^3/uL (0.8-4.8); Lymphocytes % 23.6 %; Mean Corpuscular HGB Conc 34.5 g/dL (30-55); Mean Corpuscular Hemoglobin 30.6 pg (27-33); Mean Corpuscular Volume 88.8 fl (82-101); Mean Platelet Volume 11.1 fL (7.4-10.4); Monocytes # 0.7 10^3/uL (0.2-0.9); Monocytes % 9.4 %; Neutrophils % 64.6 %; Nucleated Red Blood Cells % 0 %; Platelet Count 197 10^3/cmm (157-399); Red Blood Count 4.93 10^6/uL (3.85-5.65); Red Cell Distribution Width 11.9 % (12.1-15.1); White Blood Count 7.43 10^3/uL (3.29-11.43)
[2025-02-19 23:45] VITALS: BP 116/76; PULSE 89; RESP 19; O2SAT 99
--- NOTE | 2025-02-19 23:56 | W.ED.ARRPALP ---
HPI - Arrhythmia/Palpitations General: Chief Complaint: Arrhythmia/Palpitations Stated Complaint: Jittery\Weakness Time Seen by Provider: 02/19/25 23:16 History of Present Illness: 39-year-old man with history of atrial fibrillation who presents emergency room with complaint of a strange feeling in his chest and his blood pressure being elevated. He reports I am nervous system reaction in his chest. He had some palpitations. He felt anxious. He took a BuSpar and his symptoms improved. He is not hypertensive on presentation. He is in a sinus rhythm as well. Related Data Home Medications ?Medication ?Instructions ?Recorded ?Confirmed buspirone 10 mg tablet 10 mg PO TID 01/09/25 01/31/25 hydroxyzine HCl 25 mg tablet 25 mg PO TID PRN panic attacks 01/09/25 01/31/25 metoprolol succinate 25 mg 25 mg PO DAILY PRN bp 01/09/25 01/31/25 tablet,extended release 24 hr Previous Rx's ?Medication ?Instructions ?Recorded aspirin 325 mg tablet 325 mg PO DAILY #30 tabs 01/09/25 metoprolol succinate 25 mg 25 mg PO DAILY #30 tabs 01/09/25 tablet,extended release 24 hr Allergies Allergy/AdvReac Type Severity Reaction Status Date / Time Alpha-Gal Allergy Unknown Verified 02/19/25 23:12 (Lqpubjkxk-Uvpre-5,3-Gala brimonidine (From Alphagan P) Allergy Unknown Verified 02/19/25 23:12 egg Allergy Unknown Verified 02/19/25 23:12 milk Allergy ADR-Heartbu Verified 02/19/25 23:12 rn peanut Allergy ALGY-Anaphy Verified 02/19/25 23:12 laxis soy Allergy Unknown Verified 02/19/25 23:12 spinach Allergy Unknown Verified 02/19/25 23:12 tree nut Allergy Unknown Verified 02/19/25 23:12 walnut Allergy Unknown Verified 02/19/25 23:12 wheat Allergy Unknown Verified 02/19/25 23:12 Review of Systems Narrative: Constitutional symptoms: Negative except as documented in HPI. Skin symptoms: Negative except as documented in HPI. Eye symptoms: Negative except as documented in HPI. ENMT symptoms: Negative except as documented in HPI. Respiratory symptoms: Negative except as documented in HPI. Cardiovascular symptoms: Negative except as documented in HPI. Gastrointestinal symptoms: Negative except as documented in HPI. Genitourinary symptoms: Negative except as documented in HPI. Musculoskeletal symptoms: Negative except as documented in HPI. Neurologic symptoms: Negative except as documented in HPI. Psychiatric symptoms: Negative except as documented in HPI. Endocrine symptoms: Negative except as documented in HPI. PFSH ED PFSH: Medical History Atrial fibrillation Ocular migraine Surgical History No pertinent past surgical history Family History Father Palpitations Other Atrial fibrillation Social History Smoking and tobacco/nicotine status: never used tobacco/nicotine Alcohol intake: never Substance/Drug Use: never Physical Exam Narrative: EXAM NARRATIVE: General: Alert, no acute distress. Skin: Warm, dry. Head: Normocephalic, atraumatic. Neck: Supple, trachea midline. Eye: Extraocular movements are intact. Ears, nose, mouth and throat: mucosa moist. Cardiovascular: Regular, Normal peripheral perfusion. Respiratory: Lungs are clear to auscultation, respirations are non-labored, breath sounds are equal, Symmetrical chest wall expansion. Gastrointestinal: Soft, Nontender, Non distended Musculoskeletal: Normal ROM, no deformity. Neurological: Alert and oriented, No focal neurological deficit observed. Psychiatric: Cooperative, appropriate mood & affect. Course Vital Signs: Vital signs: Vital Signs Temperature 97.9 F 02/19/25 23:08 Pulse Rate 68 02/20/25 00:50 Respiratory Rate 27 H 02/20/25 00:50 Blood Pressure 106/71 02/20/25 00:50 Pulse Oximetry 97 02/20/25 00:50 Oxygen Delivery Me thod Room Air 02/20/25 00:50 MDM - Arrhythmia/Palpitations Medical Decision Making Medical decision making: Differential diagnosis including but not limited to and based on the above HPI, review of systems and physical exam: for patient with palpitations: atrial fibrillation with rapid ventricular response. ventricular tachycardia. sinus tachycardia. PVCs. also concern for underlying issues causing tachycardia. Infection, electrolyte abnormalities and thyroid issues Orders placed to evaluate differential diagnosis based on the above differential, HPI and physical exam EKG: Time 2315. Rate 76. Normal sinus rhythm, No ST-T changes, no ectopy, normal [place] & QRS intervals, This was reviewed and interpreted by myself the ER physician at 2320 Lab Review: Laboratory results were reviewed and interpreted by myself the emergency room physician. Lab work is unremarkable I reviewed the patient's medical record. Reexamination: Patient remained stable. No increased work of breathing. No altered mental status. No focal motor deficits. Assessment and plan: Palpitations - Discharged home - Discussed plan with patient. Answered any questions. - Evaluation and treatment of this problem were appropriate in the emergency setting. Lab Data 02/19/25 23:33 02/19/25 23:33 Laboratory Results WBC 7.43 10^3/uL (3.29-11.43) 02/19/25: RBC 4.93 10^6/uL (3.85-5.65) 02/19/25 23: Hgb 15.10 g/dL (11.27-16.99) 02/19/25: Hct 43.8 % (37-53) 02/19/25 23: MCV 88.8 fl (82-101) 02/19/25 23: MCH 30.6 pg (27-33) 02/19/25: MCHC 34.5 g/dL (30-55) 02/19/25 23: RDW 11.9 % (12.1-15.1) L 02/19/25 23: Plt Count 197 10^3/cmm (157-399) 02/19/25: MPV 11.1 fL (7.4-10.4) H 02/19/25 23: Neut % (Auto) 64.6 % 02/19/25 23: Lymph % (Auto) 23.6 % 02/19/25 23: [place] % (Auto) 9.4 % 02/19/25: Eos % (Auto) 2.0 % 02/19/25 23: Baso % (Auto) 0.3 % 02/19/25 23: Neut # (Auto) 4.80 10^3/uL (1.8-7.7) 02/19/25 23: Lymph # (Auto) 1.8 10^3/uL (0.8-4.8) 02/19/25 23:33 [place] # (Auto) 0.7 10^3/uL (0.2-0.9) 02/19/25 23: Eos # (Auto) 0.2 10^3/uL (0.0-0.8) 02/19/25 23:33 Baso # (Auto) 0.0 10^3/uL (0.0-0.1) 02/19/25 23:33 Nucleated RBC % (auto) 0 % 02/19/25 23: Nucleated RBCs # 0.0 /100WBC 02/19/25 23:33 Sodium 138 mmol/L (136-145) 02/19/25 23:33 Potassium 3.8 mmol/L (3.5-5.1) 02/19/25 23:33 Chloride 101 mmol/L (98-107) 02/19/25 23: Carbon Dioxide 27 mmol/L (22-29) 02/19/25 23:33 Anion Gap 13.8 (5-19) 02/19/25 23:33 BUN 17 mg/dL (6-20) 02/19/25 23:33 Creatinine 1.1 mg/dL (0.7-1.2) 02/19/25 23:33 GFR Calculation 74.5 mL/min (90-130) L 02/19/25 23:33 Glucose 133 mg/dL (65-115) H 02/19/25 23:33 Calculated Osmolality 289 mOsm/kg (285-295) 02/19/25 23:33 Calcium 8.8 mg/dL (8.5-10.5) 02/19/25 23:33 Magnesium 1.8 mg/dL (1.7-2.3) 02/19/25 23:33 Total Bilirubin 0.5 mg/dL (0.15-1.2) 02/19/25 23:33 AST 17 U/L (0-40) 02/19/25 23:33 ALT 18 U/L (0-41) 02/19/25 23:33 Alkaline Phosphatase 66 U/L (40-130) 02/19/25 23:33 Total Protein 7.0 g/dL (6.6-8.7) 02/19/25 23:33 Albumin 4.5 g/dL (3.5-5.2) 02/19/25 23:33 Globulin 2.5 g/dL (1.3-4.6) 02/19/25 23:33 TSH 1.51 uIU/mL (0.27-4.20) 02/19/25 23:33 Urine Color Yellow (Yellow) 02/19/25 23:53 Urine Appearance Clear (CLEAR) 02/19/25 23:53 Urine pH 6.5 (5-7) 02/19/25 23:53 Ur Specific [place] 1.007 (1.005-1.030) 02/19/25 23:53 Urine Protein Negative (Negative) 02/19/25 23:53 Urine Glucose (UA) Negative (Normal) 02/19/25 23:53 Urine Ketones Negative (Negative) 02/19/25 23:53 Urine Blood Negative (Negative) 02/19/25 23:53 Urine Nitrate Negative (Negative) 02/19/25 23:53 Urine Bilirubin Negative (Negative) 02/19/25 23:53 Urine Urobilinogen 0.2 mg/dL (Negative) 02/19/25 23:53 Ur Leukocyte Esterase Negative (Negative) 02/19/25 23:53 Urine RBC 0-2 /hpf (0-2) 02/19/25 23:53 Urine WBC 0-5 /hpf (0-5) 02/19/25 23:53 Ur Squamous Epith Cells 0-5 /hpf (0-5) 02/19/25 23:53 Amorphous Sediment Not Reportable 02/19/25 23:53 Urine Bacteria None seen /hpf (NONE) 02/19/25 23:53 Hyaline Casts 0-4 /lpf H 02/19/25 23:53 Urine Opiates Screen Negative ng/mL (Negative) 02/19/25 23:53 Ur Barbiturates Screen Negative ng/mL (Negative) 02/19/25 23:53 Ur Phencyclidine Scrn Negative ng/mL (Negative) 02/19/25 23:53 Ur Amphetamines Screen Negative ng/mL (Negative) 02/19/25 23:53 U Benzodiazepines Scrn Negative ng/mL (Negative) 02/19/25 23:53 Urine Cocaine Screen Negative ng/mL (Negative) 02/19/25 23:53 U Marijuana (THC) Screen Negative ng/mL (Negative) 02/19/25 23:53 No radiology studies performed this visit Discharge Plan Discharge Patient Disposition: Home Clinical Impression: Palpitations, Anxiety Condition: Stable Prescriptions: No Action buspirone [BuSpar] 10 mg Tablet 10 mg PO TID hydroxyzine HCl 25 mg Tablet 25 mg PO TID PRN (Reason: panic attacks) metoprolol succinate 25 mg tablet extended release 24 hr 25 mg PO DAILY PRN (Reason: bp) metoprolol succinate 25 mg tablet extended release 24 hr 25 mg PO DAILY Qty: 30 0RF aspirin 325 mg tablet 325 mg PO DAILY Qty: 30 0RF Discharge Orders: Discharge ED (Routine); Ordered 02/20/25 Ordered By: Madelyn Bonilla Referrals: Reena Ivy FNP [Primary Care Provider] - Discharge Diet: Usual diet Discharge Activity: Increase activity as tolerated Patient Instructions: Opioid Safety, Pain Management Activity Restrictions/Additional Instructions: Thank you for choosing [facility] for your healthcare needs today. Please realize this is an emergency room and that we are providing you with a medical screening exam and this may not be complete and all inclusive of all the testing and or work up that you may need to determine your ailment or severity of your illness. You have been screened and evaluated and felt safe for discharge. Health conditions do change or evolve sometimes and as such it is important that you follow up with your Primary Doctor to be re checked, 3-5 days is a general good time frame for follow up. You are always welcome to return to the ED for re assessment if your symptoms are worsening or you have new concerns Print Language: Tamazight Coding Level of Care Code ED Package Reinspector for Nick Parks
[2025-02-20 00:07] LABS: Bilirubin Urine Negative (Negative); Blood Urine Negative (Negative); Glucose Urine UA Negative (Normal); Ketones Urine Negative (Negative); Leukocyte Esterase Urine Negative (Negative); Nitrate Urine Negative (Negative); Protein Urine Negative (Negative); Specific Gravity, Urine 1.007 (1.005-1.030); Urine Appearance Clear (CLEAR); Urine Color Yellow (Yellow); Urobilinogen Urine 0.2 mg/dL (Negative); pH Urine 6.5 (5-7)
[2025-02-20 00:12] LABS: Bacteria Urine None Seen /hpf; Hyaline Casts Urine 0-4 /lpf; RBC Urine 0-2 /hpf (0-2); Squamous Epithelial Cell Urine 0-5 /hpf (0-5); WBC Urine 0-5 /hpf (0-5)
[2025-02-20 00:14] LABS: Amphetamines Screen Urine Negative (Negative); Barbiturates Screen Urine Negative (Negative); Benzodiazepines Screen Urine Negative (Negative); Cocaine Screen Urine Negative (Negative); Opiate Screen Urine Negative (Negative); PCP Screen Urine Negative (Negative); THC Screen Urine Negative (Negative)
[2025-02-20 00:16] LABS: Alanine Aminotransferase 18 U/L (0-41); Albumin Level 4.5 g/dL (3.5-5.2); Alkaline Phosphatase 66 U/L (40-130); Anion Gap 13.8 (5-19); Aspartate Amino Transferase 17 U/L (0-40); Blood Urea Nitrogen 17 mg/dL (6-20); Calcium 8.8 mg/dL (8.5-10.5); Carbon Dioxide 27 mmol/L (22-29); Chloride 101 mmol/L (98-107); Creatinine Clr Calc Pharmacy 103.9897; Globulin 2.5 g/dL (1.3-4.6); Glomerular Filtration Rate 74.5 mL/min (90-130); Glucose 133 mg/dL (65-115); Magnesium 1.8 mg/dL (1.7-2.3); Osmolality Calculated 289 mOsm/kg (285-295); Potassium 3.8 mmol/L (3.5-5.1); Sodium 138 mmol/L (136-145); Thyroid Stimulating Hormone 1.51 uIU/mL (0.27-4.20); Total Bilirubin 0.5 mg/dL (0.15-1.2)
[2025-02-20 00:44] LABS: Influenza A NEGATIVE (Negative); Influenza B NEGATIVE (Negative); Respiratory Syncytial Virus Ce NEGATIVE (Negative); SARS-CoV-2 PCR NEGATIVE (Negative)
[2025-02-20 00:50] VITALS: BP 106/71; PULSE 68; RESP 27; O2SAT 97
[2025-02-20 01:12] VITALS: BP 126/69; PULSE 62; RESP 21; O2SAT 98
== END 2025-02-20 01:07 | disposition home or self-care (01) ==
PROVIDERS: Emergency Provider Emergency Medicine; PCP Nurse Practitioner
DX: R00.2 Palpitations (principal); F41.9 Anxiety disorder, unspecified; Z79.82 Long term (current) use of aspirin
CPT/HCPCS: 36415; 80053; 80306; 81001; 83735; 84443; 85025; 87637; 93005; 99284

== ENCOUNTER → 2025-05-01 13:30 | Outpatient (BNVA) | payer OTHER, SELFPAY | PROVIDERS: PCP Nurse Practitioner; Visit Provider Internal Medicine Cardiovascular Disease | DX: I48.0 Paroxysmal atrial fibrillation (principal); Z79.82 Long term (current) use of aspirin; I10 Essential (primary) hypertension; G43.909 Migraine, unspecified, not intractable, without status migrainosus | CPT/HCPCS: 99214 ==

== ENCOUNTER → 2025-09-17 13:47 | Outpatient (BNVA) | payer OTHER, SELFPAY | PROVIDERS: PCP Nurse Practitioner; Visit Provider Internal Medicine Cardiovascular Disease | DX: I48.91 Unspecified atrial fibrillation (principal); I10 Essential (primary) hypertension | CPT/HCPCS: 99214 ==